=== PATIENT | female | born 1945 | race Caucasian/White ===

== ENCOUNTER 2023-08-03 10:11 | Emergency (ER) | payer MEDICARE, MEDICAID, SELFPAY ==
[2023-08-03 10:13] VITALS: BP 198/91; PULSE 70; RESP 16; TEMP 36.6; O2SAT 98; BMI 22.6
--- NOTE | 2023-08-03 10:28 | CTR_ITS ---
PROCEDURE INFORMATION: Exam: CT Abdomen And Pelvis With Contrast Exam date and time: 08/03/2023 12:20 PM Age: 78 years old Clinical indication: Abdominal pain; Additional info: Abd pain/ vaginal bleeding TECHNIQUE: Imaging protocol: Computed tomography of the abdomen and pelvis with contrast. Radiation optimization: All CT scans at this facility use at least one of these dose optimization techniques: automated exposure control; mA and/or kV adjustment per patient size (includes targeted exams where dose is matched to clinical indication); or iterative reconstruction. Contrast material: OMNI 350; Contrast volume: 100 ml; Contrast route: INTRAVENOUS (IV); REPORTING DATA: Count of CT and Cardiac NM exams in prior 12 months: This patient has received 0 known CTs and 0 known cardiac nuclear medicine studies in the 12 months prior to the current study. COMPARISON: No relevant prior studies available. RADIATION DOSE METRICS: Total DLP (mGy-cm): 394.11 FINDINGS: Lungs: 5 mm left lower lobe pulmonary nodule series 4, image 10 Liver: Few tiny hypodensities too small to characterize. Gallbladder and bile ducts: No calcified stones. No ductal dilation. Pancreas: No ductal dilation. Spleen: No splenomegaly. Adrenal glands: No mass. Kidneys and ureters: No stones or hydronephrosis. 1.3 cm right proteinaceous/hemorrhagic cyst. Additional tiny hypodensities too small to definitively characterize. Stomach and bowel: Moderate-sized hiatal hernia. No obstruction. Colonic diverticulosis. Appendix: No evidence of appendicitis. Intraperitoneal space: No free air. No significant fluid collection. Vasculature: No abdominal aortic aneurysm. Lymph nodes: No enlarged lymph nodes. Urinary bladder: No acute findings. Reproductive: Irregular appearance of the vagina/cervix with peripheral thick irregular enhancing calix and internal complex fluid densities (axial image 62). Bones/joints: No acute findings. Soft tissues: No acute findings. CT/CT abdomen pelvis w con* [id number] IMPRESSION: Irregular appearance of the vagina/cervix, recommend pelvic MRI with contrast for further characterization. 5 mm left lower lobe pulmonary nodules indeterminate given above findings. Moderate-sized hiatal hernia.
--- NOTE | 2023-08-03 10:30 | W.ED.FEMALGU ---
HPI - Female Genitourinary General: Chief complaint: Urogenital-Female Stated complaint: VAG BLEED Time Seen by Provider: 08/03/23 10:27 History of Present Illness: 78-year-old female presents emergency department with complaints that she started having vaginal bleeding with large clots at approximately 9 AM this morning. She states she is intermittently dizzy and feels like her blood pressure is elevated. She states she has never had a Pap smear or any sort of female vaginal surgery and has never had any bleeding like this before. Review of Systems General: Reports: 10 or more systems reviewed and unremarkable except in HPI and below : Reports: vaginal bleeding [facility] PFSH: Surgical History History of cataract surgery Social History Smoking and tobacco/nicotine status: never used tobacco/nicotine Physical Exam Narrative: EXAM NARRATIVE: Constitutional: the patient appears well nourished and of normal development. Vital signs as documented. No acute distress at present. Alert and oriented-to person, place, time and situation. Head, eyes, ears, nose, mouth, throat: Normocephalic, atraumatic. Pupils-equal, round, reactive to light. No scleral icterus. Normal-appearing external ears. Normal appearing nasal turbinates, no drainage. No obvious oral lesions, posterior oropharynx without erythema or exudates. Neck: Supple, trachea is midline, no lymphadenopathy, no jugular venous distension, thyromegaly, or carotid bruits. Carotid upstrokes are brisk bilaterally. Lungs: clear to auscultation to all lung tariq. Symmetrical rise and fall of chest, no obvious signs of increased work of breathing at present. Cardiac: Regular rate and rhythm, positive S1, S2. No murmurs, rubs or gallops that I can appreciate Abdomen: Soft, non-tender to palpation, normal active bowel sounds to all quadrants. No palpable masses, no organomegaly and abdominal bruits. Extremities: 2+ pulses in the upper extremities that are equal bilaterally, 2+ pulses in the lower extremities that are equal bilaterally. Non-edematous. Moves all extremities well, sensation to all extremities are noted. Skin: Warm, dry, intact. Course Vital Signs: Vital signs: Vital Signs Temperature 97.8 F 08/03/23 10:13 Pulse Rate 65 08/03/23 17:54 Respiratory Rate 16 08/03/23 17:54 Blood Pressure 112/57 08/03/23 17:54 Pulse Oximetry 98 08/03/23 17:54 Oxygen Delivery Me thod Room Air 08/03/23 15:03 MDM - Female Medical Decision Making Physical exam completed and documented, the patient does appear to be very anxious I will obtain a CBC and CMP as well as urinalysis, a transvaginal ultrasound as well as an abdominal CT abdomen pelvis for evaluation. Differential diagnosis includes gynecological malignancy, fibroma, dysfunctional uterine bleeding., Medical Records I reviewed the patient's medical records. Lab Data I reviewed the patient's lab results. 08/03/23 10:44 08/03/23 10:44 Radiology Impressions Abdomen/Pelvis CT 08/03/23 10:28 IMPRESSION: Irregular appearance of the vagina/cervix, recommend pelvic MRI with contrast for further characterization. 5 mm left lower lobe pulmonary nodules indeterminate given above findings. Moderate-sized hiatal hernia. Transvaginal US 08/03/23 13:29 IMPRESSION: 1. Two somewhat complex cystic structures in the pelvis with somewhat thick calix measuring 6.8 and 6 cm in size with minimal peripheral color blood flow, corresponding to the cystic structure seen on comparison CT scan. Findings are concerning for a malignant process, an infectious process is also a consideration. 2. Uterus not seen. 3. Right ovary not seen. 4. Left ovary not seen. Laboratory Results WBC 6.59 10^3/uL (3.29-11.43) 08/03/23 10:44 RBC 4.73 10^6/uL (3.85-5.65) 08/03/23 10:44 Hgb 13.80 g/dL (11.27-16.99) 08/03/23 10:44 Hct 41.7 % (36-47) 08/03/23 10:44 MCV 88.2 fl (85-98) 08/03/23 10:44 MCH 29.2 pg (27-33) 08/03/23 10:44 MCHC 33.1 g/dL (30-55) 08/03/23 10:44 RDW 11.8 % (12.1-15.1) L 08/03/23 10:44 Plt Count 331 10^3/cmm (157-399) 08/03/23 10:44 MPV 8.5 fL (7.4-10.4) 08/03/23 10:44 Neut % (Auto) 73.3 % 08/03/23 10:44 Lymph % (Auto) 13.5 % 08/03/23 10:44 Potter % (Auto) 9.6 % 08/03/23 10:44 Eos % (Auto) 2.7 % 08/03/23 10:44 Baso % (Auto) 0.6 % 08/03/23 10:44 Neut # (Auto) 4.83 10^3/uL (1.8-7.7) 08/03/23 10:44 Lymph # (Auto) 0.9 10^3/uL (0.8-4.8) 08/03/23 10:44 Potter # (Auto) 0.6 10^3/uL (0.2-0.9) 08/03/23 10:44 Eos # (Auto) 0.2 10^3/uL (0.0-0.8) 08/03/23 10:44 Baso # (Auto) 0.0 10^3/uL (0.0-0.1) 08/03/23 10:44 Nucleated RBC % (auto) 0 % 08/03/23 10:44 Nucleated RBCs # 0.0 /100WBC 08/03/23 10:44 Sodium 138 mmol/L (136-145) 08/03/23 10:44 Potassium 4.0 mmol/L (3.5-5.1) 08/03/23 10:44 Chloride 101 mmol/L (98-107) 08/03/23 10:44 Carbon Dioxide 23 mmol/L (22-29) 08/03/23 10:44 Anion Gap 18.0 (5-19) 08/03/23 10:44 BUN 10 mg/dL (8-23) 08/03/23 10:44 Creatinine 0.7 mg/dL (0.5-0.9) 08/03/23 10:44 GFR Calculation Not Reportable 08/03/23 10:44 Glucose 101 mg/dL (65-115) 08/03/23 10:44 Calculated Osmolality 285 mOsm/kg (285-295) 08/03/23 10:44 Calcium 9.0 mg/dL (8.5-10.5) 08/03/23 10:44 Total Bilirubin 0.4 mg/dL (0.15-1.2) 08/03/23 10:44 AST 20 U/L (0-32) 08/03/23 10:44 ALT 13 U/L (0-33) 08/03/23 10:44 Alkaline Phosphatase 103 U/L (35-105) 08/03/23 10:44 Total Protein 7.7 g/dL (6.6-8.7) 08/03/23 10:44 Albumin 4.5 g/dL (3.5-5.2) 08/03/23 10:44 Globulin 3.2 g/dL (1.3-4.6) 08/03/23 10:44 Urine Color Straw (Yellow) 08/03/23 10:30 Urine Appearance Clear (CLEAR) 08/03/23 10:30 Urine pH 7 (5-7) 08/03/23 10:30 Ur Specific [place] 1.005 (1.005-1.030) 08/03/23 10:30 Urine Protein Neg (Negative) 08/03/23 10:30 Urine Glucose (UA) Norm (Normal) 08/03/23 10:30 Urine Ketones Negative (Negative) 08/03/23 10:30 Urine Blood Neg (Negative) 08/03/23 10:30 Urine Nitrate Negative (Negative) 08/03/23 10:30 Urine Bilirubin Neg (Negative) 08/03/23 10:30 Urine Urobilinogen Norm mg/dL (Negative) 08/03/23 10:30 Ur Leukocyte Esterase Negative (Negative) 08/03/23 10:30 All radiology interpretation(s) finalized by discharge Discharge Plan Discharge Patient Disposition: Home Clinical Impression: Uterine bleeding Condition: Stable Prescriptions: No Action aspirin 81 mg tablet,delayed release (DR/EC) 81 mg PO DAILY metoprolol tartrate 25 mg tablet 25 mg PO DAILY lovastatin 20 mg tablet 20 mg PO DAILY levothyroxine 50 mcg tablet 50 mcg PO DAILY citalopram 20 mg tablet 20 mg PO DAILY amlodipine 5 mg tablet 5 mg PO DAILY lisinopril 20 mg tablet 20 mg PO DAILY Discharge Orders: Discharge ED (Routine); Ordered 08/03/23 Ordered By: Michele Delvalle Referrals: Yo Bernal MD [Physician] - Richi Santana MD [Referring] - Discharge Diet: Advance as tolerated Discharge Activity: Resume usual activity Patient Instructions: Opioid Safety, Pain Management Activity Restrictions/Additional Instructions: Activity Restrictions/Additional Instructions: Thank you for choosing [facility] for your healthcare needs today. Please realize that you were seen in the Emergency Department and that we are providing you with an emergency medical screening exam and this may not be a complete and all inclusive of all the testing and or medical work-up that you may need to determine your ailment or severity of your illness. It is very important that you follow-up as instructed with your Primary care provider or Specialist for additional evaluation and to discuss your medical treatment plan. You may return to the Emergency Department should you have concerns or if your condition changes or worsens in any way. Coding Level of Care Code ED Appointment Manager for Jamel Renee
[2023-08-03 10:31] VITALS: BP 166/83; PULSE 66; RESP 18; O2SAT 18
[2023-08-03 11:06] LABS: Basophils % 0.6 %; Eosinophils # 0.2 10^3/uL (0.0-0.8); Eosinophils % 2.7 %; Hematocrit 41.7 % (36-47); Lymphocytes # 0.9 10^3/uL (0.8-4.8); Lymphocytes % 13.5 %; Mean Corpuscular HGB Conc 33.1 g/dL (30-55); Mean Corpuscular Hemoglobin 29.2 pg (27-33); Mean Corpuscular Volume 88.2 fl (85-98); Mean Platelet Volume 8.5 fL (7.4-10.4); Monocytes # 0.6 10^3/uL (0.2-0.9); Monocytes % 9.6 %; Neutrophils # 4.83 10^3/uL (1.8-7.7); Neutrophils % 73.3 %; Nucleated Red Blood Cells % 0 %; Platelet Count 331 10^3/cmm (157-399); Red Blood Count 4.73 10^6/uL (3.85-5.65); Red Cell Distribution Width 11.8 % (12.1-15.1); White Blood Count 6.59 10^3/uL (3.29-11.43)
[2023-08-03 11:09] LABS: Add Urine Microscopic? NO; Charge for UA Resulting for Rev
[2023-08-03 11:16] LABS: Bilirubin Urine Neg (Negative); Blood Urine Neg (Negative); Glucose Urine UA Norm (Normal); Ketones Urine Negative (Negative); Leukocyte Esterase Urine Negative (Negative); Nitrate Urine Negative (Negative); Protein Urine Neg (Negative); Specific Gravity, Urine 1.005 (1.005-1.030); Urine Appearance Clear (CLEAR); Urine Color Straw (Yellow); Urobilinogen Urine Norm (Negative); pH Urine 7 (5-7)
[2023-08-03 11:57] LABS: Alanine Aminotransferase 13 U/L (0-33); Albumin Level 4.5 g/dL (3.5-5.2); Alkaline Phosphatase 103 U/L (35-105); Aspartate Amino Transferase 20 U/L (0-32); Blood Urea Nitrogen 10 mg/dL (8-23); Carbon Dioxide 23 mmol/L (22-29); Chloride 101 mmol/L (98-107); Creatinine Clr Calc Pharmacy 49.6381; Globulin 3.2 g/dL (1.3-4.6); Glucose 101 mg/dL (65-115); Osmolality Calculated 285 mOsm/kg (285-295); Sodium 138 mmol/L (136-145); Total Bilirubin 0.4 mg/dL (0.15-1.2); Total Protein 7.7 g/dL (6.6-8.7)
[2023-08-03] MEDS: iohexol 350 mg/mL 500 mL Btl (per mL) IV (12:27)
--- NOTE | 2023-08-03 13:29 | USR_ITS ---
PROCEDURE INFORMATION: Exam: US Pelvis, Transvaginal Exam date and time: 08/03/2023 2:04 PM Age: 78 years old Clinical indication: Other: Uterine bleeding TECHNIQUE: Imaging protocol: Real-time transvaginal pelvic ultrasound with image documentation. Transvaginal imaging was used for better evaluation of the endometrium, adnexa, and/or cervix. COMPARISON: CT abdomen pelvis w con* [id number] 08/03/2023 12:20 PM FINDINGS: Uterus: Uterus not seen. Right ovary/adnexa: Right ovary not seen. Left ovary/adnexa: Left ovary not seen. Two somewhat complex cystic structures in the pelvis with somewhat thick calix measuring 6.8 and 6 cm in size with minimal peripheral color blood flow, corresponding to the cystic structure seen on comparison CT scan. Findings are concerning for a malignant process, an infectious process is also a consideration. US/US transvaginal [id number] IMPRESSION: 1. Two somewhat complex cystic structures in the pelvis with somewhat thick calix measuring 6.8 and 6 cm in size with minimal peripheral color blood flow, corresponding to the cystic structure seen on comparison CT scan. Findings are concerning for a malignant process, an infectious process is also a consideration. 2. Uterus not seen. 3. Right ovary not seen. 4. Left ovary not seen.
[2023-08-03 15:03] VITALS: BP 129/60; PULSE 82; O2SAT 96
[2023-08-03] MEDS: tranexamic acid 1,000 MG/100 ML PREMIX 600 MG IV (16:21)
[2023-08-03 17:53] VITALS: BP 112/57; PULSE 65; RESP 16; O2SAT 98
[2023-08-03 17:54] VITALS: BP 112/57; PULSE 65; PULSE 82; RESP 16; O2SAT 96; O2SAT 98
== END 2023-08-03 17:55 | disposition home or self-care (01) ==
PROVIDERS: Emergency Provider Internal Medicine; PCP Internal Medicine
DX: N93.9 Abnormal uterine and vaginal bleeding, unspecified (principal); Z79.82 Long term (current) use of aspirin; K44.9 Diaphragmatic hernia without obstruction or gangrene
CPT/HCPCS: 74177; 76830; 80053; 81003; 85025; 96365; 99285; Q9967

== ENCOUNTER 2023-10-17 08:03 | Oncology outpatient (recurring) (ONCR) | payer MEDICARE, MEDICAID, SELFPAY ==
--- NOTE | 2023-10-21 11:27 | N.ONRAD NP_ITS ---
Radiation Oncology New Patient Visit Patient: Klarissa Willson MR#: [id number] : 1945> Age: 78> Sex: Female> Dictated by: Dr. Nayeli Hutson Date of Service: 10/17/2023 Referring Physician(s) : Dr. 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 It was apparently fairly significant bleeding but she was not anemic. She was sent to Dr. So for additional evaluation. He visited with her on Saturday and did surgery the following day on Saturday. She had had an ultrasound and a CT scan which did not show any evidence of metastatic disease. There was some issues with identifying the uterus on the scan as well is or cystic structures in the pelvis. At the time of her surgery on August 17 she had a CLARIBEL and BSO along with pelvic and periaortic node dissection. 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 All the remaining tissue as well as the lymph nodes were all negative with a total of 15 nodes sampled. The tumor measured 4 x 4.5 cm in size and was grade 2 with no lymphovascular or perineural invasion noted. All margins were negative. She is here today to discuss postoperative treatment. Current Medications: Allergies: Medical History: Ovarian mass, postmenopausal bleeding no history of collagen vascular disease. No previous radiation therapy. Surgical History: None prior to her CLARIBEL/BSO with mairto sampling Family History: Her aunt had breast cancer in her father and sister both had heart disease Social History: She currently lives alone and a penitentiary community. She has no smoking or alcohol use history Current Complaints / Review of Systems: . She currently is without complaints. Her incision is nicely healed. Vital Signs: Physical Exam: General patient is in moderate distress. She feels like her blood pressure is elevated secondary to her current anxiety. She is alone today. HEENT: Normocephalic atraumatic. Pupils are equal, sclera clear, extraocular muscles intact. Neck is supple without palpable cervical supraclavicular adenopathy Cardiovascular: Regular rate and rhythm Pulmonary: Respiratory rate is regular nonlabored Abdomen: Soft and nontender. All of her incisions appear to be nicely healed. Extremities: No clubbing cyanosis or edema noted Skin: Warm and dry without ecchymoses Neurological: Alert and orient x 3. Gait and speech within normal limits Psych: Patient is quite stressed today. She has a high level of anxiety. Apparently her physician in [place] told her that this was a life and situation and she needed to be seen today. Performance Status: KPS 100 Pathology: Grade 2 squamous cell carcinoma of the cervix Lab: Imaging: See HPI Impression: Squamous of carcinoma of the cervix Plan: I reviewed with Mrs. Willson her current situation. We talked about how she had had a very appropriate and aggressive surgery. At the time of her surgery they thought that her malignancy was uterine in nature. She did have a radical hysterectomy however and she also had lymph node sample clear into the periaortic region. Her surgery was more than adequate for either uterine or cervical cancer. Her margins were negative. The depth of invasion was greater than 5 mm but there was no lymphovascular invasion noted. The lesion was a grade 2 and by final measurements was approximately 4 cm in size. All margins were negative. I have reviewed with her the fact that she rides chest on the line between a stage Ib2 and a Ib3. We talked about how the difference between these 2 stages is 1 receives postop radiation and the other receives radiation and chemotherapy. Her tumor was just at the breaking point between a Ib2 and Ib3. I feel like her greatest risk of recurrence is locally. Her nodes have been adequately sampled. Based on postop trends and outcomes for the last 30 years her risk of survival is not changed with chemotherapy. This is based on a study by Carl Barreto [place] [employer]etrics and Gynecology 2020. I have recommended to her at this time that she consider proceeding with postop radiation. She verbalized that this sounded like the best thing for her to do. She understands the process and she is anxious to get started. Will go ahead and get her scheduled for simulation and meet with her after that to review and make sure she had no additional questions. Plan at this time is to proceed with a 4-5 week course of treatment to the pelvis. Signed by: 10/21/2023 11:26:32 AM <<Signature on File>> Time spent with patient:60 CPT Code: CPT Code:
== END 2023-10-17 23:59 | disposition home or self-care (01) ==
PROVIDERS: PCP Internal Medicine; Visit Provider Radiology Radiation Oncology
DX: Z53.9 Procedure and treatment not carried out, unspecified reason (principal)

== ENCOUNTER 2023-11-13 08:56 | Oncology outpatient (recurring) (ONCR) | payer MEDICARE, MEDICAID, SELFPAY ==
--- NOTE | 2023-11-05 12:53 | ONCRAD TMN_ITS ---
Radiation Oncology Weekly Treatment Management Patient: Klarissa Willson MR#: [id number] : 1945 Attending Physician: Dileep Fatima Date of Service: 11/05/2023 Referring Physician(s) : Dr. So Diagnosis: C53.9 - Malignant neoplasm of cervix uteri, unspecified, Diagnosed 08/17/2023 (Active) Radiotherapy to date: Course: Pelvis 2023, Treatment Site: Pelvis 50Gy, Ref. ID: [id number], Energy: 15X, Dose/Fx (cGy): 200, #Fx: , Dose Correction (cGy): 0, Total Dose Delivered (cGy): 400, Start Date: 11/04/2023, Elapsed Days: 1 Reason for visit: The patient is being seen today as part of their regularly scheduled weekly on treatment visits to assess for acute toxicities from radiotherapy. Review of Systems: Doing well. She cannot hold urine for a long time otherwise no urinary or bowel sxs. Eating well. Active during the day. Vital Signs: Performed on 11/05/2023 9:58 AM BMI - 23.997 kg/m2 (high), Height - 62 in, Weight - 131.2 lbs, Temperature - 97.5 f, Pulse - 64 /min, Respiration - 16 /min, O2 Sat - 99 %, Pain - 0, Fatigue - 0 and BP - 170/ 74 mm(hg)(high/). Physical Exam: omitted Imaging: Radiation therapy imaging related to accurate target localization (i.e. KV, MV and CBCT) was reviewed. Appropriate changes, if any, were made to ensure treatment accuracy. Plan: Good tolerance of treatment. Continue as planned. Signed by: Dileep Fatima 11/05/2023 12:51:36 PM
--- NOTE | 2023-11-12 10:35 | ONCRAD TMN_ITS ---
Radiation Oncology Weekly Treatment Management Patient: Demetris Henderson MR#: [id number] : 1945> Attending Physician: Dr. Nayeli Hutson Date of Service: 11/12/2023 Fractions: 7 of Referring Physician(s) : Diagnosis: C53.9 - Malignant neoplasm of cervix uteri, unspecified, Diagnosed 08/17/2023 (Active) Radiotherapy to date: Course: Pelvis 2023, Treatment Site: Pelvis 50Gy, Ref. ID: [id number], Energy: 15X, Dose/Fx (cGy): 200, #Fx: , Dose Correction (cGy): 0, Total Dose Delivered (cGy): 1,400, Start Date: 11/04/2023, Elapsed Days: 8 Reason for visit: The patient is being seen today as part of their regularly scheduled weekly on treatment visits to assess for acute toxicities from radiotherapy. Review of Systems: Patient has had a change in her stool. It normally starts out solid but then goes to liquid towards the end. She still only having 1 stool day. She has had no nausea. She is quite fatigued if she is having to ride the transport breast. Vital Signs: Performed on 11/12/2023 10:07 AM BMI - 23.924 kg/m2 (high), Height - 62 in, Weight - 130.8 lbs, Temperature - 97.2 f, Pulse - 98 /min, Respiration - 18 /min, O2 Sat - 98 %, Pain - 0, Fatigue - 7 and BP - 168/ 73 mm(hg)(high/). Physical Exam: No changes on exam Imaging: Radiation therapy imaging related to accurate target localization (i.e. KV, MV and CBCT) was reviewed. Appropriate changes, if any, were made to ensure treatment accuracy. Plan: Will continue with her treatments as planned. I wrote down the name for Imodium so that she can pick this up if she needed to down the line. She has discontinued her prune juice for now. Signed by: Dr. Nayeli Hutson 11/12/2023 10:34:31 AM
== END 2023-11-13 23:59 | disposition home or self-care (01) ==
PROVIDERS: PCP Internal Medicine; Visit Provider Radiology Radiation Oncology
DX: Z51.0 Encounter for antineoplastic radiation therapy (principal); C53.9 Malignant neoplasm of cervix uteri, unspecified
CPT/HCPCS: 77300; 77301; 77334; 77338; 77386; 99024

== ENCOUNTER 2023-11-15 09:07 | Oncology outpatient (recurring) (ONCR) | payer MEDICARE, MEDICAID, SELFPAY | END 2023-11-17 23:59 | disposition home or self-care (01) | PROVIDERS: PCP Internal Medicine; Visit Provider Radiology Radiation Oncology | DX: Z51.0 Encounter for antineoplastic radiation therapy (principal); C53.9 Malignant neoplasm of cervix uteri, unspecified | CPT/HCPCS: 77336; 77386 ==

== ENCOUNTER 2023-12-05 09:20 | Oncology outpatient (recurring) (ONCR) | payer MEDICARE, MEDICAID, SELFPAY ==
--- NOTE | 2023-11-19 10:25 | ONCRAD TMN_ITS ---
Radiation Oncology Weekly Treatment Management Patient: Klarissa Willson MR#: [id number] : 1945 Attending Physician: Dr. Nayeli Hutson Date of Service: 11/19/2023 Fractions: Referring Physician(s) : Diagnosis: C53.9 - Malignant neoplasm of cervix uteri, unspecified, Diagnosed 08/17/2023 (Active) Radiotherapy to date: Course: Pelvis 2023, Treatment Site: Pelvis 50Gy, Ref. ID: [id number], Energy: 15X, Dose/Fx (cGy): 200, #Fx: , Dose Correction (cGy): 0, Total Dose Delivered (cGy): 2,400, Start Date: 11/04/2023, Elapsed Days: 15 Reason for visit: The patient is being seen today as part of their regularly scheduled weekly on treatment visits to assess for acute toxicities from radiotherapy. Review of Systems: Patient had a day of diarrhea and took 2 Imodium. She is subsequently not gone for 2 days. Vital Signs: Performed on 11/19/2023 9:32 AM BMI - 23.814 kg/m2 (high), Height - 62 in, Weight - 130.2 lbs, Temperature - 97.4 f, Pulse - 67 /min, Respiration - 16 /min, O2 Sat - 97 %, Pain - 0, Fatigue - 7 and BP - 158/ 63 mm(hg)(high/low). Physical Exam: No changes on exam Imaging: Radiation therapy imaging related to accurate target localization (i.e. KV, MV and CBCT) was reviewed. Appropriate changes, if any, were made to ensure treatment accuracy. Plan: Will continue with her treatments as planned. I have asked her to go ahead and start her prune juice again. In the future I reminded her that trying just half of a pill of Imodium would be where to start if she should have liquid stools again. Signed by: Dr. Nayeli Hutson 11/19/2023 10:23:32 AM
--- NOTE | 2023-11-26 10:31 | ONCRAD TMN_ITS ---
Radiation Oncology Weekly Treatment Management Patient: Klarissa Willson MR#: [id number] : 1945 Attending Physician: Dr. Nayeli Hutson Date of Service: 11/26/2023 Fractions: Referring Physician(s) : Diagnosis: C53.9 - Malignant neoplasm of cervix uteri, unspecified, Diagnosed 08/17/2023 (Active) Radiotherapy to date: Course: Pelvis 2023, Treatment Site: Pelvis 50Gy, Ref. ID: [id number], Energy: 15X, Dose/Fx (cGy): 200, #Fx: , Dose Correction (cGy): 0, Total Dose Delivered (cGy): 3,400, Start Date: 11/04/2023, Elapsed Days: Reason for visit: The patient is being seen today as part of their regularly scheduled weekly on treatment visits to assess for acute toxicities from radiotherapy. Review of Systems: Patient's only complaint is that she is fairly fatigued. She was able to get her bowels back to normal. Vital Signs: Performed on 11/26/2023 10:10 AM BMI - 23.704 kg/m2 (high), Height - 62 in, Weight - 129.6 lbs, Temperature - 97.9 f, Pulse - 67 /min, Respiration - 16 /min, O2 Sat - 99 %, Pain - 0, Fatigue - 5 and BP - 148/ 68 mm(hg)(high/). Physical Exam: No changes on exam Imaging: Radiation therapy imaging related to accurate target localization (i.e. KV, MV and CBCT) was reviewed. Appropriate changes, if any, were made to ensure treatment accuracy. Plan: Will continue with her treatments as planned. I did encourage her to try and ride her bike this weekend. Signed by: Dr. Nayeli Hutson 11/26/2023 10:28:49 AM
--- NOTE | 2023-12-03 10:30 | ONCRAD TMN_ITS ---
Radiation Oncology Weekly Treatment Management, Patient: Demetris Henderson MR#: [id number] : 1945> Attending Physician: Dr. Nayeli Hutson Date of Service: 12/03/2023 Fractions: 22 out of 25 Referring Physician(s) : Diagnosis: C53.9 - Malignant neoplasm of cervix uteri, unspecified, Diagnosed 08/17/2023 (Active) Radiotherapy to date: Course: Pelvis 2023, Treatment Site: Pelvis 50Gy, Ref. ID: [id number], Energy: 15X, Dose/Fx (cGy): 200, #Fx: , Dose Correction (cGy): 0, Total Dose Delivered (cGy): 4,400, Start Date: 11/04/2023, Elapsed Days: Reason for visit: The patient is being seen today as part of their regularly scheduled weekly on treatment visits to assess for acute toxicities from radiotherapy. Review of Systems: Patient continues to have intermittent diarrhea for which she is using the Imodium. She is lost about 2 pounds through the course of her treatment based on her scales. She is also quite fatigued and has not been able to ride her bike since starting treatment Vital Signs: Performed on 12/03/2023 10:02 AM BMI - 23.375 kg/m2 (high), Height - 62 in, Weight - 127.8 lbs, Temperature - 97.4 f, Pulse - 54 /min (low), Respiration - 18 /min, O2 Sat - 97 %, Pain - 0, Fatigue - 0 and BP - 155/ 75 mm(hg)(high/). Physical Exam: No changes on exam Imaging: Radiation therapy imaging related to accurate target localization (i.e. KV, MV and CBCT) was reviewed. Appropriate changes, if any, were made to ensure treatment accuracy. Plan: Will continue with her treatments. Should be done on Saturday. Will schedule her for a follow-up in about a month. Will schedule follow-up scans in 8 to 12 weeks. Signed by: Dr. Nayeli Hutson 12/03/2023 10:28:45 AM
== END 2023-12-05 23:59 | disposition home or self-care (01) ==
PROVIDERS: PCP Internal Medicine; Visit Provider Radiology Radiation Oncology
DX: Z51.0 Encounter for antineoplastic radiation therapy (principal); C53.9 Malignant neoplasm of cervix uteri, unspecified
CPT/HCPCS: 77336; 77386; 99024

== ENCOUNTER 2023-12-06 10:10 | Oncology outpatient (recurring) (ONCR) | payer MEDICARE, MEDICAID, SELFPAY ==
--- NOTE | 2023-12-09 09:47 | N.ONRD TS_ITS ---
Radiation Oncology Treatment Summary Patient: Demetris>Santiago MR#: [id number] : 1945> Age: 78> Sex: Female Dictated by: Dr. Nayeli Hutson Date of Service: 12/06/2023 Referring Physician(s) : Diagnosis: C53.9 - Malignant neoplasm of cervix uteri, unspecified, Diagnosed 08/17/2023 (Active) Radiotherapy to Date: Course: Pelvis 2023, Treatment Site: Pelvis 50Gy, Ref. ID: [id number], Energy: 15X, Dose/Fx (cGy): 200, #Fx: 25 / 25, Dose Correction (cGy): 0, Total Dose Delivered (cGy): 5,000, Start Date: 11/04/2023, End Date: 12/06/2023, Elapsed Days: 32 Clinical Summary: The patient tolerated RT well. Her main complaint was significant fatigue. Part of this was related to her treatment but part of it was also related to the fact that she had to ride the bus for at least 1 to 2 hours a day in order to get here for her treatment. Plan: End of treatment today. Continue on the above medication until the skin reaction resolves. Follow up in one month. Signed by: Dr. Nayeli Hutson>12/09/2023 9:46:05 AM <<Signature on File>>
== END 2023-12-17 23:59 | disposition home or self-care (01) ==
LOC: ONCMED 10:10
PROVIDERS: PCP Internal Medicine; Visit Provider Radiology Radiation Oncology
DX: Z51.0 Encounter for antineoplastic radiation therapy (principal); C53.9 Malignant neoplasm of cervix uteri, unspecified
CPT/HCPCS: 77336; 77386; 99024

== ENCOUNTER 2024-11-25 10:04 | Outpatient (CLI) | payer MEDICARE, MEDICAID, SELFPAY ==
--- NOTE | 2024-11-25 10:09 | XRR_ITS ---
PROCEDURE INFORMATION: Exam: XR Right Forearm Exam date and time: 11/25/2024 10:27 AM Age: 79 years old Clinical indication: Injury or trauma; Fall; Blunt trauma (contusions or hematomas); Arm, lower; Right; Additional info: Recent fall w/bruising/hx of falling/ecchymosis TECHNIQUE: Imaging protocol: Radiologic exam of the right forearm. Views: 2 views. COMPARISON: No relevant prior studies available. FINDINGS: Bones/joints: Normal. Soft tissues: Dorsal soft tissue swelling in the proximal forearm. XR/XR forearm RT 2V [id number] IMPRESSION: No acute osseous abnormality.
== END 2024-11-25 10:05 | disposition home or self-care (01) ==
PROVIDERS: PCP Internal Medicine; Visit Provider Nurse Practitioner Family
DX: Z91.81 History of falling (principal); R58 Hemorrhage, not elsewhere classified; M79.89 Other specified soft tissue disorders
CPT/HCPCS: 73090

== ENCOUNTER 2024-12-14 01:37 | Emergency (ER) | payer MEDICARE, MEDICAID, SELFPAY ==
[2024-12-14 01:38] VITALS: BP 120/68; PULSE 115; RESP 19; TEMP 37.1; O2SAT 96; BMI 23.6
--- NOTE | 2024-12-14 01:38 | XRR_ITS ---
PROCEDURE INFORMATION: Exam: XR Chest Exam date and time: 12/14/2024 1:38 AM Age: 79 years old Clinical indication: Chest pressure; C/O chest pain; Additional info: Cp TECHNIQUE: Imaging protocol: Radiologic exam of the chest. Views: 1 view. COMPARISON: CT abdomen pelvis w con* [id number] 08/03/2023 12:20 PM FINDINGS: Lungs: Unremarkable. No consolidation. Pleural spaces: Unremarkable. No pleural effusion. No pneumothorax. Heart/Mediastinum: Cardiac enlargement. Large hiatal hernia. Bones/joints: Unremarkable. XR/XR chest 1V portable [id number] IMPRESSION: Negative for acute chest pathology.
--- NOTE | 2024-12-14 01:41 | ECG_ITS ---
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
[2024-12-14 01:58] LABS: Basophils % 0.5 %; Eosinophils # 0.2 10^3/uL (0.0-0.8); Eosinophils % 2.3 %; Hematocrit 35.8 % (36-47); Lymphocytes # 0.4 10^3/uL (0.8-4.8); Lymphocytes % 5.3 %; Mean Corpuscular HGB Conc 31.6 g/dL (30-55); Mean Corpuscular Hemoglobin 27.2 pg (27-33); Mean Corpuscular Volume 86.1 fl (85-98); Neutrophils # 6.63 10^3/uL (1.8-7.7); Neutrophils % 79.7 %; Nucleated Red Blood Cells % 0 %; Platelet Count 663 10^3/cmm (157-399); Red Blood Count 4.16 10^6/uL (3.85-5.65); Red Cell Distribution Width 13.3 % (12.1-15.1); White Blood Count 8.32 10^3/uL (3.29-11.43)
[2024-12-14 02:07] LABS: INR 0.97 (0.8-1.2)
[2024-12-14 02:08] LABS: Partial Thromboplastin Time 26.8 SECONDS (23.9-36.7)
[2024-12-14 02:17] LABS: Troponin(5th) Baseline 10 ng/L (0-10)
[2024-12-14 02:34] LABS: Alanine Aminotransferase 9 U/L (0-33); Albumin Level 3.2 g/dL (3.5-5.2); Alkaline Phosphatase 95 U/L (35-105); Anion Gap 17.4 (5-19); Aspartate Amino Transferase 16 U/L (0-32); Blood Urea Nitrogen 7 mg/dL (8-23); Calcium 8.5 mg/dL (8.5-10.5); Carbon Dioxide 20 mmol/L (22-29); Chloride 103 mmol/L (98-107); Creatinine Clr Calc Pharmacy 49.7059; Globulin 2.9 g/dL (1.3-4.6); Glucose 104 mg/dL (65-115); Osmolality Calculated 282 mOsm/kg (285-295); Potassium 3.4 mmol/L (3.5-5.1); Sodium 137 mmol/L (136-145); Total Bilirubin 0.3 mg/dL (0.15-1.2); Total Protein 6.1 g/dL (6.6-8.7)
[2024-12-14 02:36] VITALS: PULSE 98; RESP 20; O2SAT 95
[2024-12-14 02:39] LABS: NT Pro B Type Natriuretic Pept 215 pg/mL (0-450)
[2024-12-14] MEDS: dexamethasone 4 mg/mL INJ 8 MG IVP (03:39)
--- NOTE | 2024-12-14 03:39 | W.ED.CHESTPA ---
HPI - Chest Pain General: Chief Complaint: Chest Pain Stated Complaint: cp Time Seen by Provider: 12/14/24 01:42 History of Present Illness: 79-year-old female with no prior history of cardiac disease. She presents with left-sided pleuritic chest pain, worse with cough. Pain is sharp. It has been present for several days on and off. She notes white sputum. She ran a fever last week. She states I have a bad cold . She came in as a STEMI alert, due to EKG changes found in the field. Related Data Home Medications ?Medication ?Instructions ?Recorded ?Confirmed amlodipine 5 mg tablet 5 mg PO DAILY 04/26/22 08/06/23 citalopram 20 mg tablet 20 mg PO DAILY 04/26/22 08/06/23 levothyroxine 50 mcg tablet 50 mcg PO DAILY 04/26/22 08/06/23 lovastatin 20 mg tablet 20 mg PO DAILY 04/26/22 08/06/23 metoprolol tartrate 25 mg tablet 25 mg PO DAILY 04/26/22 08/06/23 lisinopril 20 mg tablet 20 mg PO DAILY 08/03/23 08/06/23 aspirin 81 mg tablet,delayed 81 mg PO DAILY 08/06/23 08/06/23 release Previous Rx's ?Medication ?Instructions ?Recorded doxycycline hyclate 100 mg tablet 100 mg PO BID 7 days #14 tabs 12/14/24 methylprednisolone 4 mg tablets in See Rx Instructions PO .COMPLEX 12/14/24 a dose pack (Medrol (Grady)) #21 ea Allergies Allergy/AdvReac Type Severity Reaction Status Date / Time Penicillins Allergy Unknown ALGY-Hives Verified 08/06/23 15:30 Sulfa (Sulfonamide Allergy Unknown ALGY-Hives Verified 08/06/23 15:30 Antibiotics) PFS ED PFSH: Surgical History History of cataract surgery Social History Smoking and tobacco/nicotine status: never used tobacco/nicotine Physical Exam Const: COMMON NORMALS: no acute distress GENERAL APPEARANCE: cooperative; not ill appearing and not frail appearing HENMT: COMMON NORMALS: normocephalic, atraumatic and Normal external nose present HEAD & SCALP: normocephalic and atraumatic FACE & SINUS: normal facial exam and face symmetric NOSE: Normal external nose present Eye: COMMON NORMALS: Equal, round and reactive pupils present and EOMs intact bilaterally PUPIL: Yes Equal, round and reactive pupils present Neck/C-Spine: GENERAL: Yes trachea midline Chest: CHEST: Yes Symmetrical chest wall rise and Yes tenderness (Left chest) Resp: COMMON NORMALS: normal respiratory effort, No retractions, No use of accessory muscles and clear to auscultation bilaterally AUSCULTATION: clear to auscultation bilaterally Cardio: COMMON NORMALS: regular rate and regular rhythm RATE: regular rate RHYTHM: regular rhythm GI: COMMON NORMALS: Normal to inspection, nondistended, normoactive bowel sounds present Extremity: COMMON NORMALS: no pedal edema Neuro: CLEMENT COMA SCALE: document GCS findings [place] coma scale eye opening: Spontaneous Clement coma scale verbal response: Orientated Clement coma scale motor response: Obey commands Clement coma scale total score: 15 SENSORY EXAM: Yes extremities (intact) Psych: COMMON NORMALS: speech normal SPEECH: Yes normal speech Skin: COMMON NORMALS: no rashes or lesions noted GENERAL SKIN EXAM: no rashes or lesions noted Course Vital Signs: Vital signs: Vital Signs Temperature 98.7 F 12/14/24 01:38 Pulse Rate 102 H 12/14/24 04:08 Respiratory Rate 18 12/14/24 03:46 Blood Pressure 121/85 12/14/24 04:08 Pulse Oximetry 97 12/14/24 04:08 Oxygen Delivery Me thod Room Air 12/14/24 02:36 MDM - Chest Pain Medical Decision Making 79-year-old female with pleuritic left chest pain, cough, and sputum production. Her white blood cell count is 8.3. Platelet count 663. Bicarbonate is 20. First troponin is 10. BNP is 215. She is not hypoxic. She is mildly tachycardic at times. Her chest x-ray is negative for infiltrate. Pain is somewhat reproducible. She is given dexamethasone, Toradol here. Awaiting a second troponin. EKG initially showed sinus tachycardia with an intraventricular conduction delay/left bundle. As she was a STEMI alert called from the field, EKG was reviewed by cardiology prior to arrival. They are in agreement, that this is likely not ST elevation [place]. He came to evaluate the patient, examined repeat EKG and first troponin, and does agree the patient is not having an ST elevation myocardial infarction. She does not have evidence of acute coronary syndrome at this point. Awaiting a second troponin Delta troponin at 2 hours is 3. Pain is pleuritic. She will be treated for acute bronchitis with chest wall pain. Doxycycline, steroids, etc. Close outpatient follow-up. Return for any new or worsening symptoms. Lab Data 12/14/24 01:53 12/14/24 01:53 Radiology Impressions Chest X-Ray 12/14/24 01:38 IMPRESSION: Negative for acute chest pathology. Laboratory Results WBC 8.32 10^3/uL (3.29-11.43) 12/14/24 01:53 RBC 4.16 10^6/uL (3.85-5.65) 12/14/24 01:53 Hgb 11.30 g/dL (11.27-16.99) 12/14/24 01:53 Hct 35.8 % (36-47) L 12/14/24 01:53 MCV 86.1 fl (85-98) 12/14/24 01:53 MCH 27.2 pg (27-33) 12/14/24 01:53 MCHC 31.6 g/dL (30-55) 12/14/24 01:53 RDW 13.3 % (12.1-15.1) 12/14/24 01:53 Plt Count 663 10^3/cmm (157-399) H 12/14/24 01:53 MPV 8.0 fL (7.4-10.4) 12/14/24 01:53 Neut % (Auto) 79.7 % 12/14/24 01:53 Lymph % (Auto) 5.3 % 12/14/24 01:53 [place] % (Auto) 12.0 % 12/14/24 01:53 Eos % (Auto) 2.3 % 12/14/24 01:53 Baso % (Auto) 0.5 % 12/14/24 01:53 Neut # (Auto) 6.63 10^3/uL (1.8-7.7) 12/14/24 01:53 Lymph # (Auto) 0.4 10^3/uL (0.8-4.8) L 12/14/24 01:53 [place] # (Auto) 1.0 10^3/uL (0.2-0.9) H 12/14/24 01:53 Eos # (Auto) 0.2 10^3/uL (0.0-0.8) 12/14/24 01:53 Baso # (Auto) 0.0 10^3/uL (0.0-0.1) 12/14/24 01:53 Nucleated RBC % (auto) 0 % 12/14/24 01:53 Nucleated RBCs # 0.0 /100WBC 12/14/24 01:53 PT 13.60 SECONDS (12.1-14.9) 12/14/24 01:53 INR 0.97 (0.8-1.2) 12/14/24 01:53 APTT 26.8 SECONDS (23.9-36.7) 12/14/24 01:53 Sodium 137 mmol/L (136-145) 12/14/24 01:53 Potassium 3.4 mmol/L (3.5-5.1) L 12/14/24 01:53 Chloride 103 mmol/L (98-107) 12/14/24 01:53 Carbon Dioxide 20 mmol/L (22-29) L 12/14/24 01:53 Anion Gap 17.4 (5-19) 12/14/24 01:53 BUN 7 mg/dL (8-23) L 12/14/24 01:53 Creatinine 0.7 mg/dL (0.5-0.9) 12/14/24 01:53 GFR Calculation Not Reportable 12/14/24 01:53 Glucose 104 mg/dL (65-115) 12/14/24 01:53 Calculated Osmolality 282 mOsm/kg (285-295) L 12/14/24 01:53 Calcium 8.5 mg/dL (8.5-10.5) 12/14/24 01:53 Total Bilirubin 0.3 mg/dL (0.15-1.2) 12/14/24 01:53 AST 16 U/L (0-32) 12/14/24 01:53 ALT 9 U/L (0-33) 12/14/24 01:53 Alkaline Phosphatase 95 U/L (35-105) 12/14/24 01:53 Troponin T Baseline 10 ng/L (0-10) 12/14/24 01:53 Troponin T 120 Minute 12.00 ng/L (0-10) H 12/14/24 03:37 Delta Troponin T 2.00 ABS# (0-10) 12/14/24 03:37 NT-Pro-B Natriuret Pep 215 pg/mL (0-450) 12/14/24 01:53 Total Protein 6.1 g/dL (6.6-8.7) L 12/14/24 01:53 Albumin 3.2 g/dL (3.5-5.2) L 12/14/24 01:53 Globulin 2.9 g/dL (1.3-4.6) 12/14/24 01:53 All radiology interpretation(s) finalized by discharge Discharge Plan Discharge Patient Disposition: Home Clinical Impression: Atypical chest pain, Acute bronchiolitis Condition: Stable Prescriptions: New methylprednisolone [Medrol (Grady)] 4 mg tablets,dose pack See Rx Instructions .ROUTE .COMPLEX Qty: 21 0RF Rx Instructions: orally per package directions doxycycline hyclate 100 mg tablet 100 mg PO BID 7 Days Qty: 14 0RF No Action aspirin 81 mg tablet,delayed release (DR/EC) 81 mg PO DAILY metoprolol tartrate 25 mg tablet 25 mg PO DAILY lovastatin 20 mg tablet 20 mg PO DAILY levothyroxine 50 mcg tablet 50 mcg PO DAILY citalopram 20 mg tablet 20 mg PO DAILY amlodipine 5 mg tablet 5 mg PO DAILY lisinopril 20 mg tablet 20 mg PO DAILY Discharge Orders: Discharge ED (Routine); Ordered 12/14/24 Ordered By: Jonny Perry Referrals: Anayeli Reaves MD [Primary Care Provider] - 1-3 days Patient Instructions: Acute Bronchitis (ED), Opioid Safety, Pain Management Activity Restrictions/Additional Instructions: Medication as directed. Return for worsening pain despite treatment, worsening shortness of breath, fever despite 2-3 more doses of antibiotics, any other concerning symptoms. Call your doctor later this morning for a follow-up appointment. Print Language: Azeri Coding Level of Care Code ED Hook Up Driver for Jamel Renee
[2024-12-14] MEDS: lidocaine 2% viscous 15 ML, aluminum-mag hydrox-simethicon 30 ML, sucralfate oral liq 1 GM PO (03:41)
[2024-12-14] MEDS: guaiFENesin-codeine UDC 10 mL PO (03:43)
--- NOTE | 2024-12-14 03:43 | ECG_ITS ---
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
[2024-12-14] MEDS: doxycycline 100 mg Tablet PO (03:44)
[2024-12-14 03:46] VITALS: BP 127/60; PULSE 107; RESP 18; O2SAT 96
[2024-12-14 04:08] VITALS: BP 121/85; PULSE 102; O2SAT 97
[2024-12-14] MEDS: metoprolol tartrate 1 mg/1 mL SDV 5 mL 2.5 MG IVP (04:58)
--- NOTE | 2024-12-14 05:17 | PC.NURSE ---
pt rod this nrse called pt estefania cardenas who stated she would come get her.
[2024-12-14] MEDS: acetaminophen 500 mg Tablet 1000 MG PO (05:27)
[2024-12-14 05:46] VITALS: BP 132/73; PULSE 85; RESP 18; O2SAT 90
[2024-12-14 06:56] VITALS: BP 130/80; PULSE 99; O2SAT 90
== END 2024-12-14 06:58 | disposition home or self-care (01) ==
PROVIDERS: Emergency Provider Emergency Medicine; PCP Internal Medicine
DX: R07.89 Other chest pain (principal); J21.9 Acute bronchiolitis, unspecified
CPT/HCPCS: 71045; 80053; 83880; 84484; 85025; 85610; 85730; 93005; 96374; 96375; 99285; J1100; J3490; J9999

== ENCOUNTER 2024-12-24 04:54 | Inpatient (IN) | payer MEDICARE, MEDICAID, SELFPAY ==
[2024-12-24] VITALS (10 sets, daily range): BP systolic 107–137; BP diastolic 48–80; PULSE 71–131; RESP 16–23; TEMP 36.7–38.4; O2SAT 92–95; BMI 20.5
--- NOTE | 2024-12-24 05:00 | XRR_ITS ---
PROCEDURE INFORMATION: Exam: XR Chest Exam date and time: 12/24/2024 5:09 AM Age: 79 years old Clinical indication: Cough TECHNIQUE: Imaging protocol: Radiologic exam of the chest. Views: 1 view. COMPARISON: CR (CHEST, ) 12/14/2024 1:38 AM FINDINGS: Lungs: Hypoventilatory changes of the lung bases. Pleural spaces: Unremarkable. No pleural effusion. No pneumothorax. Heart/Mediastinum: Large hiatal hernia. Bones/joints: Unremarkable. XR/XR chest 1V portable [id number] IMPRESSION: No acute findings.
--- NOTE | 2024-12-24 05:05 | ECG_ITS ---
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1945 Requested By: Merritt Rivas Order Number: [id number] Reading MD: UGO HANEY Measurements Intervals [place] Rate: 120 P: 0 [place]: 0 QRS: 105 QRSD: 125 T: -42 QT: 339 QTc: 480 Interpretive Statements ATRIAL FIBRILLATION WITH RAPID VENTRICULAR RESPONSE SEPTAL MYOCARDIAL INFARCTION , OF INDETERMINATE AGE [40+ ms Q WAVE IN V1/V2] LATERAL MYOCARDIAL INFARCTION , PROBABLY RECENT [40+ ms Q WAVE AND/OR ST/T ABNORMALITY IN I/aVL/V5/V6] ACUTE [place] Compared to ECG 12/14/2024 03:29:59 Sinus tachycardia no longer present Intraventricular conduction delay no longer present Myocardial infarct finding still present Electronically Signed On 12-26-2024 16:18:55 CDT by UGO HANEY [email or web address] [id number]
[2024-12-24 05:13] LABS: Basophils % 0.2 %; Eosinophils # 0.2 10^3/uL (0.0-0.8); Eosinophils % 1.3 %; Hematocrit 34.1 % (36-47); Lymphocytes # 0.4 10^3/uL (0.8-4.8); Lymphocytes % 3.2 %; Mean Corpuscular HGB Conc 31.7 g/dL (30-55); Mean Corpuscular Hemoglobin 26.7 pg (27-33); Mean Corpuscular Volume 84.2 fl (85-98); Mean Platelet Volume 8.2 fL (7.4-10.4); Monocytes # 1.2 10^3/uL (0.2-0.9); Neutrophils # 9.75 10^3/uL (1.8-7.7); Neutrophils % 84.6 %; Nucleated Red Blood Cells % 0 %; Platelet Count 631 10^3/cmm (157-399); Red Blood Count 4.05 10^6/uL (3.85-5.65); Red Cell Distribution Width 13.8 % (12.1-15.1); White Blood Count 11.52 10^3/uL (3.29-11.43)
[2024-12-24] MEDS: sodium chloride 0.9% 1,000 ML 999 ML IV (05:13)
[2024-12-24] MEDS: dilTIAZem 5 mg/mL SDV 5 mL 10 MG IVP (05:13)
[2024-12-24 05:32] LABS: Alanine Aminotransferase 12 U/L (0-33); Albumin Level 2.6 g/dL (3.5-5.2); Alkaline Phosphatase 107 U/L (35-105); Anion Gap 14.9 (5-19); Aspartate Amino Transferase 18 U/L (0-32); Blood Urea Nitrogen 12 mg/dL (8-23); Calcium 8.1 mg/dL (8.5-10.5); Carbon Dioxide 22 mmol/L (22-29); Chloride 100 mmol/L (98-107); Creatinine Clr Calc Pharmacy 48.7963; Globulin 3.3 g/dL (1.3-4.6); Glucose 109 mg/dL (65-115); Osmolality Calculated 276 mOsm/kg (285-295); Potassium 3.9 mmol/L (3.5-5.1); Sodium 133 mmol/L (136-145); Total Bilirubin 0.4 mg/dL (0.15-1.2); Total Protein 5.9 g/dL (6.6-8.7)
[2024-12-24] MEDS: dilTIAZem 100 MG in sodium chloride 0.9% (add-van) 100 ML IV (05:35)
[2024-12-24 05:38] LABS: Thyroid Stimulating Hormone 4.75 uIU/mL (0.27-4.20)
--- NOTE | 2024-12-24 05:43 | PM.HP ---
Providers/Chief Complaint Primary Care Provider: Anayeli Reaves MD Chief Complaint: WEAKNESS History of Present Illness Klarissa Willson is a 79 year old female with a past medical history significant for hypertension, hyperlipidemia, cervical cancer, and multiple other comorbidities who presents to the emergency department with persistent cough x 10 days. She describes her cough is productive. Patient endorses associated severe weakness, nausea, vomiting, and generalized malaise. She endorses posttussive emesis. She states she can only eat a couple bites of food at a time before symptoms worsen. She attributes much of her weakness to inability to hold down food. She reports she completed 1 week of antibiotics. She was recently diagnosed with bronchitis and treated with steroids and doxycycline. Reports associated chills. Denies chest pain or fevers. On the emergency department, she was found to have atrial fibrillation with rapid ventricular rate. Started on Cardizem. She denies prior history of known A-fib. Denies family history of atrial fibrillation. Review of Systems Narrative: A complete review of systems was obtained and is negative except as stated in HPI. Medications/Allergies Home Medications ?Medication ?Instructions ?Recorded ?Confirmed ?Last Taken ?Type amlodipine 5 mg tablet 5 mg PO DAILY 04/26/22 08/06/23 08/03/23 History citalopram 20 mg tablet 20 mg PO DAILY 04/26/22 08/06/23 08/03/23 History levothyroxine 50 mcg tablet 50 mcg PO DAILY 04/26/22 08/06/23 08/03/23 History lovastatin 20 mg tablet 20 mg PO DAILY 04/26/22 08/06/23 08/03/23 History metoprolol tartrate 25 mg tablet 25 mg PO DAILY 04/26/22 08/06/23 08/03/23 History lisinopril 20 mg tablet 20 mg PO DAILY 08/03/23 08/06/23 08/03/23 History aspirin 81 mg tablet,delayed 81 mg PO DAILY 08/06/23 08/06/23 Unknown History release methylprednisolone 4 mg tablets in See Rx Instructions PO .COMPLEX 12/14/24 Unknown Rx a dose pack (Medrol ([facility])) #21 ea Allergies Allergy/AdvReac Type Severity Reaction Status Date / Time Penicillins Allergy Unknown ALGY-Hives Verified 08/06/23 15:30 Sulfa (Sulfonamide Allergy Unknown ALGY-Hives Verified 08/06/23 15:30 Antibiotics) PFSH Acute PFSH: Medical History Cervical cancer Hypertension Hyperlipidemia Surgical History History of cataract surgery Family History Denies family history of Arrhythmia Social History Smoking and tobacco/nicotine status: never used tobacco/nicotine Alcohol intake: never Substance/Drug Use: never Vitals/I&O/Wt Last Vital Signs Temp 98.0 F 12/24/24 04:55 Pulse 112 H 12/24/24 05:36 Resp 18 12/24/24 05:36 BP 127/80 12/24/24 05:36 Pulse Ox 93 12/24/24 05:19 O2 Del Method Room Air 12/24/24 05:19 Weight last 48 hrs Weight 52.617 kg Physical Exam Narrative: General: Patient is awake and alert. Cough present. Head: Normocephalic. Atraumatic. EOM intact. Dry mucous membranes. Neck: No JVD. Cardiovascular: No gallops. No murmurs. Irregularly irregular rhythm. Tachycardic. Lungs: Clear to auscultation, no use of accessory muscles, no crackles or wheezes. Cough present. Skin: No jaundice. No rashes. Abdomen: Normal bowel sounds, abdomen soft and nontender. Extremities: No cyanosis or clubbing. Musculoskeletal: No swollen or erythematous joints. Neurological: Moves all 4 extremities. No myoclonus. Data 12/24/24 05:02 12/24/24 05:02 A&P Assessment and plan (1) Atrial fibrillation: (2) Bronchitis: (3) Leukocytosis: (4) Thrombocytosis: (5) Hyponatremia: (6) Abnormal thyroid function test: Plan Newly diagnosed paroxysmal A-fib with a RVR - Telemetry monitoring - Continue Cardizem drip - Monitor electrolytes - Check echocardiogram - Free thyroxine ordered Recent bronchitis - Chest x-ray negative for infiltrate - Status post steroids and doxycycline - Check procal - Tessalon perldel - Supportive care Hypertension - Hold Norvasc while on Cardizem - Continue BB - Hold ACEI for now Hyperlipidemia - Continue statin Hypothyroidism - TSH mildly elevated, check free T4 DVT ppx: Lovenox PDMP PDMP Reviewed: Not Reviewed Attestations Medical Necessity Statement*: Patient presents with persistent cough and weakness, found to have newly diagnosed paroxysmal atrial fibrillation with left ventricular rate in the setting of recent bronchitis with expected hospitalization not to cross 2 midnights for treatment. Coding Level of Care Code Acute Code for [facility] Fwd Diagnoses Atrial fibrillation I48.91 Bronchitis J40 Leukocytosis D72.829 Thrombocytosis D75.839 Hyponatremia E87.1 Abnormal thyroid function test R94.6
--- NOTE | 2024-12-24 05:43 | W.ED.URI ---
HPI - URI/Sore Throat General: Chief Complaint: Upper Respiratory Infection Stated Complaint: WEAKNESS Time Seen by Provider: 12/24/24 05:00 History of Present Illness: Patient presents emerged part with complaint of cough and palpitations. Patient has been having a cough now for over a week. She has been treated with doxycycline for acute bronchitis. States that she just keeps coughing up phlegm. She states that she has no appetite and has nausea and she does not eat or drink much. She does have a history of A-fib and is noted to be in A-fib with RVR. Denies having any chest pain. Denies any fever. Related Data Home Medications ?Medication ?Instructions ?Recorded ?Confirmed amlodipine 5 mg tablet 5 mg PO DAILY 04/26/22 08/06/23 citalopram 20 mg tablet 20 mg PO DAILY 04/26/22 08/06/23 levothyroxine 50 mcg tablet 50 mcg PO DAILY 04/26/22 08/06/23 lovastatin 20 mg tablet 20 mg PO DAILY 04/26/22 08/06/23 metoprolol tartrate 25 mg tablet 25 mg PO DAILY 04/26/22 08/06/23 lisinopril 20 mg tablet 20 mg PO DAILY 08/03/23 08/06/23 aspirin 81 mg tablet,delayed 81 mg PO DAILY 08/06/23 08/06/23 release Previous Rx's ?Medication ?Instructions ?Recorded methylprednisolone 4 mg tablets in See Rx Instructions PO .COMPLEX 12/14/24 a dose pack (Medrol (Grady)) #21 ea Allergies Allergy/AdvReac Type Severity Reaction Status Date / Time Penicillins Allergy Unknown ALGY-Hives Verified 08/06/23 15:30 Sulfa (Sulfonamide Allergy Unknown ALGY-Hives Verified 08/06/23 15:30 Antibiotics) [facility] ED PFSH: Medical History (Updated 12/24/24 @ 05:44 by Garrett Berman MD) Cervical cancer Hypertension Hyperlipidemia Surgical History History of cataract surgery Social History Smoking and tobacco/nicotine status: never used tobacco/nicotine Alcohol intake: never Substance/Drug Use: never Physical Exam Const: COMMON NORMALS: no acute distress, average body habitus, patient oriented x3, no limitations, healthy appearing, alert and well nourished Resp: COMMON NORMALS: normal respiratory effort, No retractions, No use of accessory muscles, clear to auscultation bilaterally and percussion normal AUSCULTATION: clear to auscultation bilaterally PERCUSSION: percussion normal Cardio: COMMON NORMALS: negative for regular rate and negative for regular rhythm RATE: abnormal rate RHYTHM: abnormal rhythm OTHER: Irregularly irregular rhythm with tachycardia GI: COMMON NORMALS: Normal to inspection, nondistended, normoactive bowel sounds present, Soft to palpation, non-tender, No hepatosplenomegaly present, no masses and no bruits PALPATION: Yes Soft to palpation and Yes No hepatosplenomegaly present Neuro: COMMON NORMALS: patient oriented x3 SENSORIUM/ORIENTATION: Yes alert Course Vital Signs: Vital signs: Vital Signs Temperature 98.0 F 12/24/24 04:55 Pulse Rate 112 H 12/24/24 05:36 Respiratory Rate 18 12/24/24 05:36 Blood Pressure 127/80 12/24/24 05:36 Pulse Oximetry 93 12/24/24 05:19 Oxygen Delivery Me thod Room Air 12/24/24 05:19 MDM - URI/Sore Throat Medical Decision Making Patient presents emerged part with complaint of URI symptoms with cough and congestion for over a week now. Treated with doxycycline with no improvement. Patient states that she cannot eat or drink much because of nausea and lack of appetite. Patient has noted to be in A-fib with RVR. She does have a history of A-fib. She has been taking her medications. Patient given Cardizem push and then had to start patient on Cardizem drip to get heart rate down. Patient given IV fluids. Repeated labs and chest x-ray. Patient still with URI symptoms but does not appear to be septic. Possible dehydrated playing a role into patient's tachycardia. Given IV fluids. EKG shows left bundle branch block. Nonspecific ST and T wave changes. Do not believe patient's EKG represent STEMI. Discussed case with Dr. Berman, hospitalist. Will admit for further evaluation and treatment of A-fib with RVR. Lab Data 12/24/24 05:02 12/24/24 05:02 Laboratory Results WBC 11.52 10^3/uL (3.29-11.43) H 12/24/24 05:02 RBC 4.05 10^6/uL (3.85-5.65) 12/24/24 05:02 Hgb 10.80 g/dL (11.27-16.99) L 12/24/24 05:02 Hct 34.1 % (36-47) L 12/24/24 05:02 MCV 84.2 fl (85-98) L 12/24/24 05:02 MCH 26.7 pg (27-33) L 12/24/24 05:02 MCHC 31.7 g/dL (30-55) 12/24/24 05:02 RDW 13.8 % (12.1-15.1) 12/24/24 05:02 Plt Count 631 10^3/cmm (157-399) H 12/24/24 05:02 MPV 8.2 fL (7.4-10.4) 12/24/24 05:02 Neut % (Auto) 84.6 % 12/24/24 05:02 Lymph % (Auto) 3.2 % 12/24/24 05:02 [place] % (Auto) 10.0 % 12/24/24 05:02 Eos % (Auto) 1.3 % 12/24/24 05:02 Baso % (Auto) 0.2 % 12/24/24 05:02 Neut # (Auto) 9.75 10^3/uL (1.8-7.7) H 12/24/24 05:02 Lymph # (Auto) 0.4 10^3/uL (0.8-4.8) L 12/24/24 05:02 [place] # (Auto) 1.2 10^3/uL (0.2-0.9) H 12/24/24 05:02 Eos # (Auto) 0.2 10^3/uL (0.0-0.8) 12/24/24 05:02 Baso # (Auto) 0.0 10^3/uL (0.0-0.1) 12/24/24 05:02 Nucleated RBC % (auto) 0 % 12/24/24 05:02 Nucleated RBCs # 0.0 /100WBC 12/24/24 05:02 Sodium 133 mmol/L (136-145) L 12/24/24 05:02 Potassium 3.9 mmol/L (3.5-5.1) 12/24/24 05:02 Chloride 100 mmol/L (98-107) 12/24/24 05:02 Carbon Dioxide 22 mmol/L (22-29) 12/24/24 05:02 Anion Gap 14.9 (5-19) 12/24/24 05:02 BUN 12 mg/dL (8-23) 12/24/24 05:02 Creatinine 0.7 mg/dL (0.5-0.9) 12/24/24 05:02 GFR Calculation Not Reportable 12/24/24 05:02 Glucose 109 mg/dL (65-115) 12/24/24 05:02 Calculated Osmolality 276 mOsm/kg (285-295) L 12/24/24 05:02 Lactic Acid 1.0 mmol/L (0.5-2.2) 12/24/24 05:02 Calcium 8.1 mg/dL (8.5-10.5) L 12/24/24 05:02 Magnesium 2.0 mg/dL (1.7-2.3) 12/24/24 05:02 Total Bilirubin 0.4 mg/dL (0.15-1.2) 12/24/24 05:02 AST 18 U/L (0-32) 12/24/24 05:02 ALT 12 U/L (0-33) 12/24/24 05:02 Alkaline Phosphatase 107 U/L (35-105) H 12/24/24 05:02 Total Protein 5.9 g/dL (6.6-8.7) L 12/24/24 05:02 Albumin 2.6 g/dL (3.5-5.2) L 12/24/24 05:02 Globulin 3.3 g/dL (1.3-4.6) 12/24/24 05:02 TSH 4.75 uIU/mL (0.27-4.20) H 12/24/24 05:02 All radiology interpretation(s) finalized by discharge Discharge Plan Discharge Condition: Stable Prescriptions: No Action aspirin 81 mg tablet,delayed release (DR/EC) 81 mg PO DAILY metoprolol tartrate 25 mg tablet 25 mg PO DAILY lovastatin 20 mg tablet 20 mg PO DAILY levothyroxine 50 mcg tablet 50 mcg PO DAILY citalopram 20 mg tablet 20 mg PO DAILY amlodipine 5 mg tablet 5 mg PO DAILY methylprednisolone [Medrol (Grady)] 4 mg tablets,dose pack See Rx Instructions .ROUTE .COMPLEX Qty: 21 0RF Rx Instructions: orally per package directions lisinopril 20 mg tablet 20 mg PO DAILY Referrals: Anayeli Reaves MD [Primary Care Provider, Internal Medicine] Print Language: Swedish Coding Level of Care Code ED Director Export for Jamel Renee
[2024-12-24 05:50] LABS: Troponin(5th) Baseline 11 ng/L (0-10)
[2024-12-24 05:57] LABS: Influenza A NEGATIVE (Negative); Influenza B NEGATIVE (Negative); Respiratory Syncytial Virus Ce NEGATIVE (Negative); SARS-CoV-2 PCR NEGATIVE (Negative)
[2024-12-24] MEDS: ondansetron 2 mg/ML SDV 2 mL 4 MG IVP ×3 (06:01→14:15)
--- NOTE | 2024-12-24 06:02 | USCV_ITS ---
Klarissa Willson Age: 79 Gender: F : 1945 Exam Date: 12/24/2024 15:19 Ordering Phys: Garrett Berman MD Technologist: PANFILO Exam Location: [facility] [place] Indication: afib BP: 111 / 54 HR: 73 Rhythm: Sinus Technical Quality: Adequate MEASUREMENTS (Male / Female) Normal Values 2D ECHO LV Diastolic Diameter PLAX 5.5 cm 4.2 - 5.9 / 3.9 - 5.3 cm IVS Diastolic Thickness 1.0 cm 0.6 - 1.0 / 0.6 - 0.9 cm IVS Systolic Thickness 1.8 cm LVPW Diastolic Thickness 1.0 cm 0.6 - 1.0 / 0.6 - 0.9 cm LVPW Systolic Thickness 1.6 cm LVOT Diameter 2.0 cm LV Ejection Fraction 2D Teich 66.7 % LV Ejection Fraction MOD 4C 63.3 % LV Ejection Fraction MOD 2C 76.5 % LV Ejection Fraction 2C AL 79.7 % LA Diameter 3.1 cm RA Systolic Volume 4C AL 45.6 ml RA Systolic Volume 4C MOD 43.7 ml LA Sys Volume AL 50.3 cm cubed LA Sys Volume Index AL 32.9 cm cubed/m squared Aorta at Sinotubular Diameter 2.7 cm M-MODE LA Ao Ratio MM 1.6 AV Cusp Separation MM 1.3 cm DOPPLER AV Peak Velocity 137.0 cm/s LVOT Peak Velocity 155.0 cm/s AV Area Cont Eq vti 3.8 cm squared AV Area Cont Eq pk 3.6 cm squared MV Peak Velocity 104.0 cm/s MV Area PHT 4.3 cm squared Mitral E to A Ratio 1.2 TR Peak Velocity 256.0 cm/s TR Peak Gradient 26.2 mmHg TV Peak E Velocity 90.0 cm/s PV Peak Velocity 125.0 cm/s FINDINGS Left Ventricle Normal left ventricular size, systolic function and wall thickness, with no regional wall motion abnormalities. Left ventricular ejection fraction is estimated at 60 %. Grade II/IV diastolic dysfunction, moderately elevated filling pressures. Right Ventricle The right ventricle is normal in size and function. Right Atrium The right atrium is normal in size. Left Atrium The left atrium is normal in size. Mitral Valve Structurally normal mitral valve without significant stenosis or prolapse. There is no mitral regurgitation. Aortic Valve Structurally normal aortic valve without significant sclerosis or stenosis. There is no aortic regurgitation. Tricuspid Valve Trace tricuspid valve regurgitation. Pulmonic Valve Mild pulmonary valve regurgitation. Pericardium Normal pericardium without effusion. Aorta Normal ascending aorta dimension. IVC The inferior vena cava appears normal. CONCLUSIONS Normal left ventricular size, systolic function and wall thickness, with no regional wall motion abnormalities. Left ventricular ejection fraction is estimated at 60 %. Grade II/IV diastolic dysfunction, moderately elevated filling pressures. There is no pericardial effusion. No significant valve abnormalities. Right atrial pressure is around 5 mm of mercury. Erinn Hawk MD (Electronically Signed) Final Date: 25 Dec 2024 17:20 S
[2024-12-24 06:36] LABS: Procalcitonin 0.23 ng/mL (0-0.5)
[2024-12-24 06:43] LABS: Free T4 Free Thyroxine 1.68 ng/dL (0.82-1.77)
--- NOTE | 2024-12-24 07:10 | ECG_ITS ---
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1945 Requested By: Merritt Rivas Order Number: [id number] Reading MD: UGO HANEY Measurements Intervals [place] Rate: 97 P: 75 MO: 194 QRS: 91 QRSD: 76 T: 56 QT: 343 QTc: 437 Interpretive Statements SINUS RHYTHM WITH FREQUENT SUPRAVENTRICULAR PREMATURE COMPLEXES BORDERLINE RIGHT AXIS DEVIATION [QRS AXIS > 90] NONSPECIFIC T-WAVE ABNORMALITY ABNORMAL RHYTHM ECG Compared to ECG 12/24/2024 05:05:55 T-wave abnormality now present Atrial fibrillation no longer present Myocardial infarct finding no longer present Electronically Signed On 12-26-2024 16:30:48 CDT by UGO HANEY [id number]
[2024-12-24 07:27] LABS: Troponin 5 2HR 12.65 ng/L (0-10); Troponin 5 2HR Delta 1.65 ABS# (0-10)
[2024-12-24] MEDS: levothyroxine 50 mcg Tablet PO (07:51)
[2024-12-24] MEDS: aspirin 81 mg EC Tablet PO (07:52)
[2024-12-24] MEDS: pantoprazole 40 mg SDV IVP ×2 (07:52→22:05)
[2024-12-24] MEDS: atorvastatin 40 mg Tablet 20 MG PO (07:52)
[2024-12-24] MEDS: citalopram 20 mg Tablet PO (07:52)
[2024-12-24] MEDS: guaiFENesin 600 mg Tablet 1200 MG PO (07:58)
[2024-12-24] MEDS: enoxaparin 60 mg/0.6 mL Syringe 50 MG SUBCUT ×2 (07:58→22:04)
[2024-12-24] MEDS: metoprolol tartrate 25 mg Tablet PO ×2 (08:01→22:05)
[2024-12-24 09:53] LABS: C Reactive Protein 239.1 mg/L (0.0-4.9)
[2024-12-24 09:59] LABS: D Dimer 5.85 ug/mLFEU (0-0.59)
[2024-12-24] MEDS: dilTIAZem 30 mg Tablet PO ×3 (10:02→22:05)
[2024-12-24] MEDS: benzonatate 100 mg Capsule 200 MG PO ×2 (10:02→22:06)
[2024-12-24] MEDS: sodium chloride 0.9% 1,000 ML 50 ML IV (10:02)
--- NOTE | 2024-12-24 10:38 | CT_ITS ---
WS: [id number] CTA CHEST ABDOMEN AND PELVIS TECHNIQUE: Contrast-enhanced enhanced CTA of the chest, followed by abdomen, and pelvis with coronal and sagittal reformatted images and additional MIP Images. CLINICAL INFORMATION: sob, ABDOMINAL DISTENTION, PAIN COMPARISON: 08/03/2023 DLP: 699.[address] scans at [facility] use at least one of these dose optimization techniques: automated exposure control; mA and/or kV adjustment per patient size (includes targeted exams where dose is matched to clinical indication); or iterative reconstruction. FINDINGS: Tiny bilateral pleural effusions. Compressive atelectasis in the lung bases. 3 mm noncalcified nodule RIGHT upper lobe. Large esophageal hiatal hernia with partial intrathoracic stomach. Associated omental herniation with associated fluid. Aortic calcification. Proximal main pulmonary arteries are normal. Normal segmental and subsegmental pulmonary arteries. No evidence of pulmonary embolus. Moderate thoracic kyphosis. Chronic anterior wedging in the lower thoracic spine. Fatty liver. A few small low-attenuation lesions in the liver likely hepatic cysts. Portal vein and splenic vein are patent. Peritoneal nodularity in the upper abdomen suspicious for peritoneal carcinomatosis. Normal caliber abdominal aorta. Peripherally enhancing perihepatic and perisplenic fluid as well as fluid in the pelvis with peripheral enhancement. Peripheral enhancing interloop fluid scattered throughout the lower abdomen and pelvis. Sigmoid diverticulosis. No evidence of high-grade obstruction. Few air- fluid levels in normal caliber small bowel. Persistent air within the colon. Tethering of a few loops of small bowel in the midabdomen due to the suspected peritoneal carcinomatosis although no evidence of high-grade obstruction. CT/CT angio chest w abd pel w con IMPRESSION: 1. No evidence of pulmonary embolus. 2. Tiny bilateral pleural effusions. 3. Large esophageal hiatal hernia with partial intrathoracic stomach. 4. Diffuse nodular induration in the ventral abdominal mesentery suspicious fo r peritoneal carcinomatosis. Recommend correlation with history of malignancy. 5. Small volume perihepatic and perisplenic ascites with peripheral enhancemen t extending to the paracolic gutters. Moderate amount of fluid in the pelvis wi th peripheral enhancement. Recommend correlation for peritonitis versus pseudom yxoma peritonei. 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 No visualized uterus .
--- NOTE | 2024-12-24 10:58 | PC.NURSE ---
At ~0800. Dr Vieira into see patient this am. Received verbal orders as documented.
--- NOTE | 2024-12-24 10:59 | P.PN_ITS ---
Subjective 2 Subjective: Patient was seen this morning, she is sitting bed, currently in and out of atrial fibrillation heart rates as high as the 130s, discussed with nursing staff switching her to amiodarone drip she is currently on Cardizem drip at 10, normotensive complaining of fatigue, malaise, intermittent shortness of breath, abdominal pain, no chest pain, no lightheadedness, dizziness, does have a poor appetite, has nausea, she feels sickly Vitals/I&O/Wt Last Vital Signs Temp 98.0 F 12/24/24 04:55 Pulse 131 H 12/24/24 08:07 Resp 23 H 12/24/24 08:07 BP 124/62 12/24/24 08:07 Pulse Ox 95 12/24/24 08:07 O2 Del Method Room Air 12/24/24 06:11 12/23/24 12/24/24 12/24/24 22:59 06:59 14:59 Intake Total 1004.167 / 1004.167 272.75 / 272.75 Balance 1004.167 / 1004.167 272.75 / 272.75 Weight last 48 hrs Weight 52.617 kg Weight 52.617 kg Physical Exam 2 Const: COMMON NORMALS: no acute distress and patient oriented x3 HENMT: COMMON NORMALS: normocephalic HEAD & SCALP: normocephalic Cardio: COMMON NORMALS: regular rate, regular rhythm, S1 normal heart sound present and S2 normal heart sound present RATE: regular rate RHYTHM: r egular rhythm HEART SOUNDS: S1 normal heart sound present and S2 normal heart sound present GI: COMMON NORMALS: Normal to inspection, nondistended, normoactive bowel sounds present and non-tender Extremity: COMMON NORMALS: no calf tenderness Neuro: COMMON NORMALS: patient oriented x3 Psych: COMMON NORMALS: mental status grossly normal Data 12/24/24 05:02 12/24/24 05:02 A&P Assessment and plan (1) Atrial fibrillation: (2) Bronchitis: (3) Leukocytosis: (4) Thrombocytosis: (5) Hyponatremia: (6) Abnormal thyroid function test: Plan Newly diagnosed paroxysmal A-fib with a RVR - Telemetry monitoring - Continue Cardizem drip, switch to amiodarone drip -Full dose Lovenox - Monitor electrolytes - Check echocardiogram - Free thyroxine ordered Recent bronchitis - Chest x-ray negative for infiltrate - Status post steroids and doxycycline - Procalcitonin within normal limits, CRP 239 -D-dimer 5.85, will do CT angiogram of the chest - Kerry weeks - Supportive care Abdominal pain, weakness, diarrhea, CT scan abdomen pelvis Hypertension - Hold Norvasc while on Cardizem - Continue BB - Hold ACEI for now Hyperlipidemia - Continue statin Hypothyroidism - TSH mildly elevated, check free T4 within normal limits DVT ppx: Lovenox Full code PDMP PDMP Reviewed: Not Reviewed Attestations 2 Medical Necessity Statement*: Patient requires hospitalization for A-fib with RVR, recent bronchitis, abdominal pain, Diagnoses Atrial fibrillation I48.91 Bronchitis J40 Leukocytosis D72.829 Thrombocytosis D75.839 Hyponatremia E87.1 Abnormal thyroid function test R94.6
--- NOTE | 2024-12-24 11:10 | ECG_ITS ---
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
[2024-12-24 11:25] LABS: Troponin 5 6HR 14.47 ng/L (0-10); Troponin 5 6HR Delta 3.47 ng/L (0-12)
[2024-12-24 11:59] LABS: Adenovirus Not Detected (NOT DETECT); Chlamydia Pneumoniae Not Detected (NOT DETECT); Coronavirus 229E,HKU1,NL63,OC4 Not Detected (NOT DETECT); Human Metapneumovirus Not Detected (NOT DETECT); Human Rhinovirus/Enterovirus Not Detected (NOT DETECT); Influenza A Not Detected (NOT DETECT); Influenza A H1 Not Detected (NOT DETECT); Influenza A H1-2009 Not Detected (NOT DETECT); Influenza A H3 Not Detected (NOT DETECT); Influenza B Not Detected (NOT DETECT); Mycoplasma Pneumoniae Not Detected (NOT DETECT); Parainfluenza Virus Type 1 Not Detected (NOT DETECT); Parainfluenza Virus Type 2 Not Detected (NOT DETECT); Parainfluenza Virus Type 3 Not Detected (NOT DETECT); Parainfluenza Virus Type 4 Not Detected (NOT DETECT); Respiratory Syncytial Virus A Not Detected (NOT DETECT); Respiratory Syncytial Virus B Not Detected (NOT DETECT); SARS-COV-2 Not Detected (NOT DETECT)
--- NOTE | 2024-12-24 12:42 | PC.NURSE ---
Patient taken to CT at this time. Informed CT that patient is having difficulty swallowing oral contrast.
[2024-12-24] MEDS: iohexol 350 mg/mL 500 mL Btl (per mL) PO (12:44)
[2024-12-24] MEDS: iohexol 350 mg/mL 500 mL Btl (per mL) IV (12:58)
[2024-12-24] MEDS: acetaminophen 325 mg Tablet 650 MG PO (13:19)
[2024-12-24] MEDS: AZITHROMYCIN ADD-Vantage 500 MG in 0.9% NaCl ADD-Vantage 250 ML 250 MG IV (16:16)
[2024-12-24] MEDS: cefTRIAXone 1,000 mg SDV 1000 MG IVP (16:17)
--- NOTE | 2024-12-24 20:37 | XRR_ITS ---
PROCEDURE INFORMATION: Exam: XR Pelvis Exam date and time: 12/24/2024 9:07 PM Age: 79 years old Clinical indication: Injury or trauma; Fall; Blunt trauma (contusions or hematomas); Bilateral; Pelvic region; Prior surgery; Surgery date: 6+ months; Surgery type: Hysterectomy from uterine CA; Additional info: Fall, portable TECHNIQUE: Imaging protocol: Radiologic exam of the pelvis. Views: 1 or 2 view. COMPARISON: CT angio chest w abd pel w con 12/24/2024 12:48 PM FINDINGS: Bones/joints: No acute fracture. Soft tissues: Unremarkable. XR/XR pelvis 1-2V* [id number] IMPRESSION: No acute findings.
[2024-12-25] VITALS (8 sets, daily range): BP systolic 103–132; BP diastolic 42–72; PULSE 68–95; RESP 18–24; TEMP 36.4–38.1; O2SAT 90–94; BMI 20.5
[2024-12-25] MEDS: dilTIAZem 30 mg Tablet PO ×4 (03:13→21:29)
[2024-12-25] MEDS: guaiFENesin 600 mg Tablet 1200 MG PO (03:13)
[2024-12-25 03:18] LABS: Basophils % 0.3 %; Eosinophils # 0.1 10^3/uL (0.0-0.8); Eosinophils % 1.5 %; Hematocrit 31.2 % (36-47); Lymphocytes # 0.4 10^3/uL (0.8-4.8); Lymphocytes % 3.8 %; Mean Corpuscular HGB Conc 30.8 g/dL (30-55); Mean Corpuscular Hemoglobin 26.4 pg (27-33); Monocytes # 0.9 10^3/uL (0.2-0.9); Monocytes % 9.5 %; Neutrophils # 7.68 10^3/uL (1.8-7.7); Neutrophils % 84.1 %; Nucleated Red Blood Cells % 0 %; Platelet Count 522 10^3/cmm (157-399); Red Blood Count 3.63 10^6/uL (3.85-5.65); Red Cell Distribution Width 13.9 % (12.1-15.1); White Blood Count 9.14 10^3/uL (3.29-11.43)
--- NOTE | 2024-12-25 03:33 | PC.NURSE ---
Patient was placed on bsc to urinate. this nurse went to rm 105 to see new patient and heard someone scream help . This nurse ran into patient room and found her on her bottom on floor. I promptly helped patient up, assessed bottom and found a small red area on right lower cheek. Patient was stating that she was fine and that this happens all the time at home . Vitals were taken and Dr Berman and yamile mg was notified. Dr Berman put in order for pelvic xray.
[2024-12-25 03:37] LABS: Alanine Aminotransferase 11 U/L (0-33); Albumin Level 2.5 g/dL (3.5-5.2); Alkaline Phosphatase 96 U/L (35-105); Anion Gap 14.2 (5-19); Aspartate Amino Transferase 15 U/L (0-32); Blood Urea Nitrogen 10 mg/dL (8-23); Calcium 7.8 mg/dL (8.5-10.5); Carbon Dioxide 21 mmol/L (22-29); Chloride 101 mmol/L (98-107); Creatinine Clr Calc Pharmacy 43.3745; Globulin 2.8 g/dL (1.3-4.6); Glucose 94 mg/dL (65-115); Magnesium 1.9 mg/dL (1.7-2.3); Osmolality Calculated 273 mOsm/kg (285-295); Phosphorus 2.8 mg/dL (2.5-4.5); Potassium 4.2 mmol/L (3.5-5.1); Sodium 132 mmol/L (136-145); Total Bilirubin 0.3 mg/dL (0.15-1.2); Total Protein 5.3 g/dL (6.6-8.7)
[2024-12-25] MEDS: acetaminophen 325 mg Tablet 650 MG PO (04:51)
--- NOTE | 2024-12-25 07:26 | PC.NURSE ---
Received report from MARILU Mcqueen. This RN informed of patient fall during the night. xrays completed. Patient resting at this time with eyes closed and even respirations observed. Will continue to monitor.
--- NOTE | 2024-12-25 07:32 | PC.NURSE ---
was not able to keep up on patient charting due to patient care.
[2024-12-25] MEDS: sodium chloride 0.9% 1,000 ML 50 ML IV ×2 (08:58→20:15)
[2024-12-25] MEDS: pantoprazole 40 mg SDV IVP ×2 (08:58→20:04)
[2024-12-25] MEDS: atorvastatin 40 mg Tablet 20 MG PO (08:59)
[2024-12-25] MEDS: levothyroxine 50 mcg Tablet PO (08:59)
[2024-12-25] MEDS: enoxaparin 60 mg/0.6 mL Syringe 50 MG SUBCUT ×2 (08:59→19:20)
[2024-12-25] MEDS: citalopram 20 mg Tablet PO (08:59)
[2024-12-25] MEDS: aspirin 81 mg EC Tablet PO (08:59)
[2024-12-25] MEDS: metoprolol tartrate 25 mg Tablet PO ×2 (09:04→20:04)
--- NOTE | 2024-12-25 09:22 | PC.SLP ---
Attempted LEADERSHIP DEVELOPMENT INSTRUCTOR visit and patient refused. Still on clear liquid diet. Patient reported no difficulty with breakfast except for poor appetite.
--- NOTE | 2024-12-25 13:45 | PM.PN ---
Subjective Subjective: Patient was seen this morning, currently she is alert and oriented x 3, following all commands, does report abdominal distention, does report a cough, we had a detailed discussion about her hiatal hernia, my concerns for likely aspiration with her hiatal hernia we also discussed her CT scan abdomen pelvis findings of peritoneal carcinomatosis, discussed her perihepatic and perisplenic ascites, no significant clinical evidence of peritonitis present, concerns associated with patient's history of cervical cancer, she does report that she has had a hysterectomy and bilateral oophorectomy, she is upset with the news, discussed paracentesis, clinical monitoring, and outpatient follow-up with OB, she might need a PET scan, but the first step is to do an ultrasound paracentesis Vitals/I&O/Wt Last Vital Signs Temp 97.8 F 12/25/24 12:00 Pulse 71 12/25/24 12:00 Resp 22 H 12/25/24 12:00 BP 112/49 12/25/24 12:00 Pulse Ox 94 12/25/24 12:00 O2 Del Method Room Air 12/25/24 12:00 O2 Flow Rate 3.5 12/25/24 03:59 12/24/24 12/25/24 12/25/24 22:59 06:59 14:59 Intake Total 250 / 882.75 1000 / 1882.75 580 / 580 Balance 250 / 882.75 1000 / 1882.75 580 / 580 Weight last 48 hrs Weight 52.617 kg Weight 52.617 kg Weight 52.617 kg Physical Exam Const: COMMON NORMALS: no acute distress and patient oriented x3 HENMT: COMMON NORMALS: normocephalic HEAD & SCALP: normocephalic Resp: COMMON NORMALS: normal respiratory effort, No retractions and No use of accessory muscles AUSCULTATION: crackles and wheezes Cardio: COMMON NORMALS: regular rate, regular rhythm, S1 normal heart sound present and S2 normal heart sound present RATE: regular rate RHYTHM: regular rhythm HEART SOUNDS: S1 normal heart sound present and S2 normal heart sound present GI: COMMON NORMALS: Normal to inspection, nondistended, normoactive bowel sounds present and non-tender Extremity: COMMON NORMALS: no calf tenderness and no pedal edema Neuro: COMMON NORMALS: patient oriented x3 Psych: COMMON NORMALS: mental status grossly normal Data 12/25/24 03:10 12/25/24 03:10 A&P Assessment and plan (1) Atrial fibrillation: (2) Bronchitis: (3) Leukocytosis: (4) Thrombocytosis: (5) Hyponatremia: (6) Abnormal thyroid function test: Plan Newly diagnosed paroxysmal A-fib with a RVR - Telemetry monitoring - Continue Cardizem drip, switch to amiodarone drip -Full dose Lovenox - Monitor electrolytes - Check echocardiogram - Free thyroxine ordered Recent bronchitis, aspiration pneumonia -CT of the chest shows large esophageal hiatal hernia with partial intrathoracic stomach -Likely aspiration pneumonia associated with patient's hiatal hernia - Continue Rocephin, Zithromycin - Procalcitonin within normal limits, CRP 239 -D-dimer 5.85 - Tesdena weeks - Supportive care - Aspiration precautions, speech therapy eval Abdominal pain, weakness, diarrhea, CT scan abdomen pelvis 4. Diffuse nodular induration in the ventral abdominal mesentery suspicious for peritoneal carcinomatosis. Recommend correlation with history of malignancy. 5. Small volume perihepatic and perisplenic ascites with peripheral enhancement extending to the paracolic gutters. Moderate amount of fluid in the pelvis with peripheral enhancement. Recommend correlation for peritonitis versus pseudomyxoma peritonei. 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 No visualized uterus. 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 Aortic, negative for malignancy - Right external iliac, 1 lymph node negative for malignancy -Status post radiation therapy -CT scan 4. Diffuse nodular induration in the ventral abdominal mesentery suspicious for peritoneal carcinomatosis. Recommend correlation with history of malignancy. 5. Small volume perihepatic and perisplenic ascites with peripheral enhancement extending to the paracolic gutters. Moderate amount of fluid in the pelvis with peripheral enhancement. Recommend correlation for peritonitis versus pseudomyxoma peritonei. 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 No visualized uterus. - Order ultrasound paracentesis as above, for pathology -Will have her follow-up with OB as outpatient PDMP PDMP Reviewed: Not Reviewed Attestations Medical Necessity Statement*: Patient requires hospitalization for A-fib, abdominal pain, aspiration pneumonia, peritoneal carcinomatosis, inpatient, greater than 2 midnights Diagnoses Atrial fibrillation I48.91 Bronchitis J40 Leukocytosis D72.829 Thrombocytosis D75.839 Hyponatremia E87.1 Abnormal thyroid function test R94.6
--- NOTE | 2024-12-25 13:58 | US_ITS ---
WS: [id number] Limited abdomen ultrasound. HISTORY: Evaluate for paracentesis. Patient has a small amount of peritoneal fluid. There is a small amount of fluid in all 4 quadrants of the peritoneal cavity. This is only a small amount of fluid. Paracentesis would probably yield less than of 1000 cc. Patient has refused paracentesis. US/US abdomen lmt fluid [id number] IMPRESSION: Very small amount of peritoneal ascites. Patient has refused paracentesis at th is time.
--- NOTE | 2024-12-25 15:24 | PC.SOCIAL ---
IMM Explained to pt Pg 2 IMM. No questions voiced. Provided pt a copy. Pt signed a copy & insurance underwriter Initialed, dated, & timed it & placed it in the chart.
[2024-12-25] MEDS: cefTRIAXone 1,000 mg SDV 1000 MG IVP (16:13)
[2024-12-25] MEDS: AZITHROMYCIN ADD-Vantage 500 MG in 0.9% NaCl ADD-Vantage 250 ML 250 MG IV (16:13)
[2024-12-25] MEDS: LORazepam 2 mg/mL INJ 1 mL 0.5 MG IVP (16:16)
--- NOTE | 2024-12-25 16:36 | PC.NURSE ---
Patient to transfer to [place] [id number]. Report called to MARILU Pérez.
[2024-12-25 19:22] LABS: Hematocrit 31.9 % (36-47)
[2024-12-25] MEDS: ondansetron 2 mg/ML SDV 2 mL 4 MG IVP (20:05)
[2024-12-25] MEDS: benzonatate 100 mg Capsule 200 MG PO (21:34)
[2024-12-26] VITALS (11 sets, daily range): BP systolic 94–128; BP diastolic 54–65; PULSE 70–97; RESP 16–19; TEMP 36.2–36.9; O2SAT 90–92
[2024-12-26] MEDS: dilTIAZem 30 mg Tablet PO ×4 (03:05→21:22)
[2024-12-26] MEDS: acetaminophen 325 mg Tablet 650 MG PO ×3 (03:05→19:14)
[2024-12-26 03:59] LABS: Basophils % 0.4 %; Eosinophils # 0.1 10^3/uL (0.0-0.8); Eosinophils % 0.9 %; Hematocrit 29.5 % (36-47); Lymphocytes # 0.5 10^3/uL (0.8-4.8); Lymphocytes % 4.9 %; Mean Corpuscular HGB Conc 30.8 g/dL (30-55); Mean Corpuscular Hemoglobin 26.7 pg (27-33); Mean Corpuscular Volume 86.5 fl (85-98); Mean Platelet Volume 8.3 fL (7.4-10.4); Monocytes # 0.9 10^3/uL (0.2-0.9); Monocytes % 8.9 %; Neutrophils # 8.87 10^3/uL (1.8-7.7); Neutrophils % 84.3 %; Nucleated Red Blood Cells % 0 %; Platelet Count 577 10^3/cmm (157-399); Red Blood Count 3.41 10^6/uL (3.85-5.65)
[2024-12-26] MEDS: ketorolac 30 mg/mL INJ 15 MG IVP ×2 (04:14→19:40)
[2024-12-26 04:18] LABS: Alanine Aminotransferase 10 U/L (0-33); Albumin Level 2.4 g/dL (3.5-5.2); Alkaline Phosphatase 100 U/L (35-105); Anion Gap 14.3 (5-19); Aspartate Amino Transferase 16 U/L (0-32); Blood Urea Nitrogen 12 mg/dL (8-23); C Reactive Protein 220.6 mg/L (0.0-4.9); Calcium 7.8 mg/dL (8.5-10.5); Carbon Dioxide 20 mmol/L (22-29); Chloride 102 mmol/L (98-107); Creatinine Clr Calc Pharmacy 43.3745; Globulin 2.2 g/dL (1.3-4.6); Glucose 88 mg/dL (65-115); Osmolality Calculated 273 mOsm/kg (285-295); Phosphorus 3.2 mg/dL (2.5-4.5); Potassium 4.3 mmol/L (3.5-5.1); Sodium 132 mmol/L (136-145); Total Bilirubin 0.2 mg/dL (0.15-1.2); Total Protein 4.6 g/dL (6.6-8.7)
[2024-12-26 04:24] LABS: NT Pro B Type Natriuretic Pept 337 pg/mL (0-450)
[2024-12-26] MEDS: atorvastatin 40 mg Tablet 20 MG PO (09:21)
[2024-12-26] MEDS: levothyroxine 50 mcg Tablet PO (09:21)
[2024-12-26] MEDS: metoprolol tartrate 25 mg Tablet PO (09:22)
[2024-12-26] MEDS: sucralfate 1 gm/10 mL Oral Liq UDC PO ×2 (09:22→13:32)
[2024-12-26] MEDS: enoxaparin 60 mg/0.6 mL Syringe 50 MG SUBCUT ×2 (09:22→19:14)
[2024-12-26] MEDS: aspirin 81 mg EC Tablet PO (09:22)
[2024-12-26] MEDS: citalopram 20 mg Tablet PO (09:22)
[2024-12-26] MEDS: pantoprazole 40 mg SDV IVP ×2 (09:22→21:22)
[2024-12-26] MEDS: meropenem 500 mg SDV IVP ×2 (11:50→19:11)
--- NOTE | 2024-12-26 12:37 | P.PN_ITS ---
Subjective 2 Subjective: - Patient was seen this morning she cont inues to complain of fatigue, malaise, feeling unwell, diffuse musculoskeletal aches, her abdominal pain is improving, but continues to have abdominal pain she has not had a bowel movement - She is frustrated as I have not gotten her better - She feels that I am letting her - I discussed with her that she has been afebrile, normotensive, her cultures so far have been unremarkable - We discussed her hiatal hernia again m y concerns for aspiration pneumonia, discussed management techniques for aspiration pneumonia but she is on room air, her cough is improving - We then discussed her abdominal pain, discussed her CT scan findings - Yesterday I had scheduled a ultrasound paracentesis to see if I could get a sample of her peritoneal fluid, to help distinguish infection versus possible malignancy - However patient declined paracentesis yesterday - She tells me that if she has cancer, s he does not want to have any treatment, and she does not want to undergo any aggressive interventions such as testing - I had a detailed discussion with her a bout her CT scan abdomen and pelvis findings - She had diffuse nodular induration of the ventral abdominal mesentery suspicious for peritoneal carcinomatosis, there is also perihepatic perisplenic ascites - There is also the possibility of perit onitis that could be infectious - The only way I could know for certain is to do a paracentesis - Discussed with her that cancer is a ti ssue diagnosis, and that I can give her 100% answer until I have further testing, such as a paracentesis to look at peritoneal fluid under microscope to see if there is cancer cells or even PET scanning - But she is declined testing yesterday so I could not perform the tests - She is quite upset she tells me that w [facility] she had her cervical cancer, they did a hysterectomy and oophorectomy and lymph node biopsy and she had radiation therapy and they told her stage I, and she is shock that has come back - Discussed with patient that I cannot 1 00% say for certain if her cervical cancer has reoccurred and now with evidence of metastasis or this might be an new cancer primary unknown, or certainly could be something else such as peritonitis -However cancer is a tissue diagnosis -I need to do further testing such as pa racentesis, look at peritoneal fluid under a slide and even that is not 100%, as there can be sampling error -So I cannot guarantee that we will have 100% answer for her, in terms of her CT scan imaging findings, before she leaves the hospital -She is agreeable to do the paracentesis on Saturday -But then she tells me that if it is can cer she wants no treatment as she is gone under radiation therapy and surgery and she does not want to undergo it again, that she has seen her sister from cancer -I offered hospice to her however for no w she has declined, she remains a full code -But unfortunately Klarissa remains upset, s he continues to go in circles about how I am letting her , and that she was told that her cancer was stage I, and it would likely not recur -I apologized to Klarissa and advised her th at I am doing the best I can but plan for today is to help her have a bowel movement, I will broaden her antibiotic coverage to cover bacterial for peritonitis, morphine for pain Vitals/I&O/Wt Last Vital Signs Temp 97.1 F L 12/26/24 07:57 Pulse 88 12/26/24 09:01 Resp 16 12/26/24 07:57 BP 124/56 12/26/24 09:01 Pulse Ox 90 12/26/24 07:57 O2 Del Method Room Air 12/26/24 07:57 O2 Flow Rate 3.5 12/25/24 03:59 12/25/24 12/26/24 12/26/24 22:59 06:59 14:59 Intake Total 771.667 / 1351.667 718.333 / 718.333 Balance 771.667 / 1351.667 718.333 / 718.333 Weight last 48 hrs Weight 63.503 kg Weight 52.617 kg Physical Exam 2 Const: COMMON NORMALS: no acute distress and patient oriented x3 Neck/C-Spine: COMMON NORMALS: no JVD Resp: COMMON NORMALS: normal respiratory effort, No retractions, No use of accessory muscles and clear to auscultation bilaterally AUSCULTATION: clear to auscultation bilaterally Cardio: COMMON NORMALS: no JVD, regular rate, regular rhythm, S1 normal heart sound present and S2 normal heart sound present RATE: regular rate RHYTHM: regular rhythm HEART SOUNDS: S1 normal heart sound present and S2 normal heart sound present GI: COMMON NORMALS: Normal to inspection, nondistended, normoactive bowel sounds present and non-tender Extremity: COMMON NORMALS: no pedal edema Neuro: COMMON NORMALS: patient oriented x3 Psych: COMMON NORMALS: mental status grossly normal Data 12/26/24 02:21 12/26/24 02:21 A&P Assessment and plan (1) Atrial fibrillation: (2) Bronchitis: (3) Leukocytosis: (4) Thrombocytosis: (5) Hyponatremia: (6) Abnormal thyroid function test: Plan Newly diagnosed paroxysmal A-fib with a RVR - Telemetry monitoring - Continue Cardizem 30 every 6h -Continue metoprolol 25 mg twice daily -Full dose Lovenox - Monitor electrolytes - Check echocardiogram CONCLUSIONS Normal left ventricular size, systolic function and wall thickness, with no regional wall motion abnormalities. Left ventricular ejection fraction is estimated at 60 %. Grade II/IV diastolic dysfunction, moderately elevated filling pressures. There is no pericardial effusion. No significant valve abnormalities. Right atrial pressure is around 5 mm of mercury. - Free thyroxine ordered Recent bronchitis, aspiration pneumonia -CT of the chest shows large esophageal hiatal hernia with partial intrathoracic stomach -Likely aspiration pneumonia associated with patient's hiatal hernia - Antibiotics coverage broadened to meropenem - Procalcitonin within normal limits, CRP 239 -D-dimer 5.85 - Tesdavidon desi - Supportive care - Aspiration precautions, speech therapy eval Abdominal pain, weakness, diarrhea, CT scan abdomen pelvis 4. Diffuse nodular induration in the ventral abdominal mesentery suspicious for peritoneal carcinomatosis. Recommend correlation with history of malignancy. 5. Small volume perihepatic and perisplenic ascites with peripheral enhancement extending to the paracolic gutters. Moderate amount of fluid in the pelvis with peripheral enhancement. Recommend correlation for peritonitis versus pseudomyxoma peritonei. 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 No visualized uterus. 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 Aortic, negative for malignancy - Right external iliac, 1 lymph node negative for malignancy -Status post radiation therapy -CT scan 4. Diffuse nodular induration in the ventral abdominal mesentery suspicious for peritoneal carcinomatosis. Recommend correlation with history of malignancy. 5. Small volume perihepatic and perisplenic ascites with peripheral enhancement extending to the paracolic gutters. Moderate amount of fluid in the pelvis with peripheral enhancement. Recommend correlation for peritonitis versus pseudomyxoma peritonei. 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 No visualized uterus. - Order ultrasound paracentesis as above, for pathology on Saturday -Will have her follow-up with OB as outpatient PDMP PDMP Reviewed: Not Reviewed Attestations 2 Medical Necessity Statement*: Patient requires hospitalization for aspiration pneumonia, abdominal pain, atrial fibrillation Diagnoses Atrial fibrillation I48.91 Bronchitis J40 Leukocytosis D72.829 Thrombocytosis D75.839 Hyponatremia E87.1 Abnormal thyroid function test R94.6
[2024-12-26 12:51] LABS: Hematocrit 28.9 % (36-47)
[2024-12-26 13:21] LABS: CA 125 54.6 U/mL (0-35)
[2024-12-26] MEDS: polyethylene glycol 3350 Pkt 17 gm PO (13:32)
[2024-12-26] MEDS: sennosides-docusate Tablet 1 TAB PO ×2 (13:32→17:12)
[2024-12-26] MEDS: morphine 4 mg/mL SDV 1 mL 2 MG IVP ×2 (17:11→21:21)
[2024-12-26] MEDS: ondansetron 2 mg/ML SDV 2 mL 4 MG IVP ×2 (18:14→19:48)
[2024-12-26] MEDS: LORazepam 2 mg/mL INJ 1 mL 0.5 MG IVP (21:21)
[2024-12-27] VITALS (13 sets, daily range): BP systolic 100–148; BP diastolic 45–65; PULSE 77–101; RESP 16–20; TEMP 36.5–37.4; O2SAT 83–93
[2024-12-27] MEDS: morphine 4 mg/mL SDV 1 mL 2 MG IVP (02:29)
[2024-12-27] MEDS: meropenem 500 mg SDV IVP ×3 (03:00→18:40)
[2024-12-27] MEDS: dilTIAZem 30 mg Tablet PO ×4 (03:00→21:01)
[2024-12-27 05:24] LABS: Basophils % 0.1 %; Eosinophils % 0.1 %; Hematocrit 29.7 % (36-47); Lymphocytes # 0.4 10^3/uL (0.8-4.8); Lymphocytes % 2.6 %; Mean Corpuscular Volume 87.1 fl (85-98); Mean Platelet Volume 8.2 fL (7.4-10.4); Monocytes # 0.9 10^3/uL (0.2-0.9); Monocytes % 6.9 %; Neutrophils # 12.11 10^3/uL (1.8-7.7); Neutrophils % 89.4 %; Nucleated Red Blood Cells % 0 %; Platelet Count 573 10^3/cmm (157-399); Red Blood Count 3.41 10^6/uL (3.85-5.65); White Blood Count 13.55 10^3/uL (3.29-11.43)
[2024-12-27 05:44] LABS: Alanine Aminotransferase 10 U/L (0-33); Albumin Level 2.3 g/dL (3.5-5.2); Alkaline Phosphatase 110 U/L (35-105); Anion Gap 19.9 (5-19); Aspartate Amino Transferase 19 U/L (0-32); Blood Urea Nitrogen 14 mg/dL (8-23); C Reactive Protein 211.8 mg/L (0.0-4.9); Carbon Dioxide 15 mmol/L (22-29); Chloride 101 mmol/L (98-107); Creatinine Clr Calc Pharmacy 55.0204; Globulin 2.9 g/dL (1.3-4.6); Glucose 97 mg/dL (65-115); Magnesium 1.9 mg/dL (1.7-2.3); Osmolality Calculated 274 mOsm/kg (285-295); Phosphorus 3.4 mg/dL (2.5-4.5); Potassium 3.9 mmol/L (3.5-5.1); Sodium 132 mmol/L (136-145); Total Bilirubin 0.2 mg/dL (0.15-1.2); Total Protein 5.2 g/dL (6.6-8.7)
[2024-12-27 06:11] LABS: NT Pro B Type Natriuretic Pept 553 pg/mL (0-450)
--- NOTE | 2024-12-27 06:41 | PHA.VACGOAL ---
Vancomycin Goal - Goal Vancomycin Goal:: 10-15 mg/L Vancomycin Indication:: Other - Therapy Current therapy:: Meropenem Day of therpy:: Day []of [] . Actual body weight (kg): 152 lb 14.4 oz - Data Labs: WBC 13.55 10^3/uL (3.29-11.43) H 12/27/24 04:21 RBC 3.41 10^6/uL (3.85-5.65) L 12/27/24 04:21 Hgb 9.20 g/dL (11.27-16.99) L 12/27/24 04:21 Hct 29.7 % (36-47) L 12/27/24 04:21 MCV 87.1 fl (85-98) 12/27/24 04:21 MCH 27.0 pg (27-33) 12/27/24 04:21 MCHC 31.0 g/dL (30-55) 12/27/24 04:21 RDW 14.0 % (12.1-15.1) 12/27/24 04:21 Sodium 132 mmol/L (136-145) L 12/27/24 04:21 Potassium 3.9 mmol/L (3.5-5.1) 12/27/24 04:21 Chloride 101 mmol/L (98-107) 12/27/24 04:21 Carbon Dioxide 15 mmol/L (22-29) L 12/27/24 04:21 Anion Gap 19.9 (5-19) H 12/27/24 04:21 BUN 14 mg/dL (8-23) 12/27/24 04:21 Creatinine 0.8 mg/dL (0.5-0.9) 12/27/24 04:21 GFR Calculation Not Reportable 12/27/24 04:21 Last dialysis session:: N/A Treatment plan:: new consult <[facility] - Last Filed: 12/27/24 06:41> - Goal Vancomycin Goal:: 15-20 mg/L Vancomycin Indication:: Pneumonia - Therapy Day of therpy:: Day []of [] . - Data Labs: WBC 19.52 10^3/uL (3.29-11.43) H 12/28/24 06:23 RBC 3.70 10^6/uL (3.85-5.65) L 12/28/24 06:23 Hgb 9.40 g/dL (11.27-16.99) L 12/28/24 09:53 Hct 29.3 % (36-47) L 12/28/24 09:53 MCV 83.5 fl (85-98) L 12/28/24 06:23 MCH 26.8 pg (27-33) L 12/28/24 06:23 MCHC 32.0 g/dL (30-55) 12/28/24 06:23 RDW 14.3 % (12.1-15.1) 12/28/24 06:23 Sodium 131 mmol/L (136-145) L 12/28/24 06:23 Potassium 3.9 mmol/L (3.5-5.1) 12/28/24 06:23 Chloride 97 mmol/L (98-107) L 12/28/24 06:23 Carbon Dioxide 19 mmol/L (22-29) L 12/28/24 06:23 Anion Gap 18.9 (5-19) 12/28/24 06:23 BUN 13 mg/dL (8-23) 12/28/24 06:23 Creatinine 0.7 mg/dL (0.5-0.9) 12/28/24 06:23 GFR Calculation Not Reportable 12/28/24 06:23 Regimen:: TROUGH 12/29 1300 <Ramiro Murillo - Last Filed: 12/28/24 15:38>
--- NOTE | 2024-12-27 08:33 | P.PN_ITS ---
Subjective 2 Subjective: Patient was seen this morning, she is currently alert oriented and x 2, following all commands, she tells me she had a difficult night, throughout the night she had a sense of impending doom, she feels that she is going to in the hospital - She does report a history of anxiety, she is on citalopram - The Ativan did work, which made her sl eepy, we discussed trying Xanax - I did detailed discussion with Klarissa reyez out her overall condition, discussed her CT scans findings again - Discussed with her that cancer is a ti ssue diagnosis, and that we need to see it under microscope before telling her if it is malignancy or not - Tells her that her abdomen does feel b ash, she has had a bowel movement, but irregular does not have a bowel movement every single day - She does have a superficial hematoma o n the left buttock she tells me that she has had a fall sometime ago, denies following in the hospital, will hold her therapeutic Lovenox for now, do CT scan abdomen pelvis - No lightheadedness, no dizziness, no c hest pain - We discussed with her that the plan is to do a paracentesis tomorrow she is in agreement - She tells me that she feels weak all o stacie weak, weakness and fatigue she think she needs to go to a care home for rehab - We discussed having case management lo ok at that tomorrow - Will have her try to set up out of bed today, maybe sit up in a chair, work with physical therapy today and tomorrow, and give her time - Discussed with her that plan [place] [facility] [place] is to do a paracentesis and have her follow-up with oncology as outpatient - Today I would hold the therapeutic Shailesh enox, do a CT scan abdomen pelvis because she has his buttocks hematoma - Did discuss her CA125 54.6 Vitals/I&O/Wt Last Vital Signs Temp 98.4 F 12/27/24 07:34 Pulse 99 12/27/24 07:34 Resp 19 H 12/27/24 07:34 BP 125/45 12/27/24 07:34 Pulse Ox 91 12/27/24 07:34 O2 Del Method Room Air 12/27/24 07:34 O2 Flow Rate 3.5 12/25/24 03:59 12/26/24 12/27/2425 22:59 06:59 14:59 Intake Total 160 / 878.333 241.667 / 241.667 Balance 160 / 878.333 241.667 / 241.667 Weight last 48 hrs Weight 69.354 kg Weight 63.503 kg Physical Exam 2 Const: COMMON NORMALS: no acute distress and patient oriented x3 Resp: COMMON NORMALS: normal respiratory effort, No retractions, No use of accessory muscles and clear to auscultation bilaterally AUSCULTATION: clear to auscultation bilaterally Cardio: COMMON NORMALS: regular rate, regular rhythm, S1 normal heart sound present and S2 normal heart sound present RATE: regular rate RHYTHM: r egular rhythm HEART SOUNDS: S1 normal heart sound present and S2 normal heart sound present GI: COMMON NORMALS: Normal to inspection, nondistended, normoactive bowel sounds present and non-tender Back/Pelvis: OTHER: Left buttocks, superficial hematoma, denies any pain, 5 x 5 cm Extremity: COMMON NORMALS: no pedal edema Neuro: COMMON NORMALS: patient oriented x3 Psych: COMMON NORMALS: mental status grossly normal Data 12/27/24 04:21 12/27/24 04:21 A&P Assessment and plan (1) Atrial fibrillation: (2) Bronchitis: (3) Leukocytosis: (4) Thrombocytosis: (5) Hyponatremia: (6) Abnormal thyroid function test: Plan Newly diagnosed paroxysmal A-fib with a RVR - Telemetry monitoring - Continue Cardizem 30 every 6h -Continue metoprolol 25 mg twice daily -Full dose Lovenox, currently on hold due to anemia, left buttocks hematoma - Monitor electrolytes - Check echocardiogram CONCLUSIONS Normal left ventricular size, systolic function and wall thickness, with no regional wall motion abnormalities. Left ventricular ejection fraction is estimated at 60 %. Grade II/IV diastolic dysfunction, moderately elevated filling pressures. There is no pericardial effusion. No significant valve abnormalities. Right atrial pressure is around 5 mm of mercury. - Free thyroxine ordered Left buttocks hematoma - Hemoglobin 9.2 - Will do CT scan abdomen pelvis with IV contrast - Protonix, Carafate - Hold Lovenox Recent bronchitis, aspiration pneumonia -CT of the chest shows large esophageal hiatal hernia with partial intrathoracic stomach -Likely aspiration pneumonia associated with patient's hiatal hernia - Antibiotics coverage broadened to meropenem, vancomycin - Procalcitonin within normal limits, CRP 239 -D-dimer 5.85 - Kerry weeks - Supportive care - Aspiration precautions, speech therapy eval Abdominal pain, weakness, diarrhea, CT scan abdomen pelvis 4. Diffuse nodular induration in the ventral abdominal mesentery suspicious for peritoneal carcinomatosis. Recommend correlation with history of malignancy. 5. Small volume perihepatic and perisplenic ascites with peripheral enhancement extending to the paracolic gutters. Moderate amount of fluid in the pelvis with peripheral enhancement. Recommend correlation for peritonitis versus pseudomyxoma peritonei. 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 No visualized uterus. - No tenderness on examination today - Patient declined paracentesis on Saturday -Reorder paracentesis for Saturday - Add meropenem, Vancomycin to cover for possible peritonitis such as spontaneous bacterial peritonitis Fatigue, malaise, weakness, deconditioning - PT OT - Potential associated peritoneal carcinomatosis? 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 Aortic, negative for malignancy - Right external iliac, 1 lymph node negative for malignancy -Status post radiation therapy -CT scan 4. Diffuse nodular induration in the ventral abdominal mesentery suspicious for peritoneal carcinomatosis. Recommend correlation with history of malignancy. 5. Small volume perihepatic and perisplenic ascites with peripheral enhancement extending to the paracolic gutters. Moderate amount of fluid in the pelvis with peripheral enhancement. Recommend correlation for peritonitis versus pseudomyxoma peritonei. 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 No visualized uterus. - Order ultrasound paracentesis as above, for pathology on Saturday -Will have her follow-up with OB as outpatient Goals of care discussion, she wants to pursue evaluation for her possible peritoneal carcinomatosis, but she tells me that if she this does proved to be cancer she wants to consider hospice for now she wants to go to a residential facility, PDMP PDMP Reviewed: Not Reviewed Attestations 2 Medical Necessity Statement*: Patient requires hospitalization for left buttocks hematoma, aspiration pneumonia, Diagnoses Atrial fibrillation I48.91 Bronchitis J40 Leukocytosis D72.829 Thrombocytosis D75.839 Hyponatremia E87.1 Abnormal thyroid function test R94.6
--- NOTE | 2024-12-27 08:33 | CTR_ITS ---
PROCEDURE INFORMATION: Exam: CT Abdomen And Pelvis With Contrast Exam date and time: 12/27/2024 10:37 AM Age: 79 years old Clinical indication: Injury or trauma; Fall; Abdominal tenderness; Blunt; Generalized; Additional info: Hematoma left buttock TECHNIQUE: Imaging protocol: Computed tomography of the abdomen and pelvis with contrast. Radiation optimization: All CT scans at this facility use at least one of these dose optimization techniques: automated exposure control; mA and/or kV adjustment per patient size (includes targeted exams where dose is matched to clinical indication); or iterative reconstruction. Contrast material: OMNIPAQUE 350; Contrast volume: 100 ml; Contrast route: INTRAVENOUS (IV); COMPARISON: CT angio chest w abd pel w con 12/24/2024 12:48 PM RADIATION DOSE METRICS: Total DLP (mGy-cm): 556.65 FINDINGS: Lungs: Small amount of increased atelectasis and/or pneumonitis in the lung bases. Pleural spaces: Increased small bilateral pleural effusions. Diaphragm: Unchanged hiatal hernia. Liver: A few small liver cysts are unchanged, and need no follow-up. Otherwise, unremarkable. Gallbladder and biliary ducts: Increased distension of gallbladder. Increased mild bile duct dilatation with common bile duct measuring 8 mm in diameter. Pancreas: Normal. No ductal dilation. Spleen: Normal. No splenomegaly. Adrenal glands: Normal. No mass. Kidneys and ureters: A few unchanged tiny renal cysts need no follow-up. Otherwise, unremarkable. Stomach and bowel: Again noted are diverticula from the colon. No obvious diverticulitis or other acute bowel pathology, but evaluation for such is quite limited due to the adjacent fluid and fat stranding. Appendix: The appendix is not identified. Intraperitoneal space: Unchanged large amount of simple free intraperitoneal fluid with unchanged findings of possible carcinomatosis and peritonitis. No free air. Vasculature: Unchanged small amount of arterial plaque. Otherwise, unremarkable. Lymph nodes: Unremarkable. No enlarged lymph nodes. Urinary bladder: Unremarkable. Reproductive: Unchanged hysterectomy. Otherwise, unremarkable. Bones/joints: Unchanged minimal multilevel spondylosis. Unchanged mild grade 1 spondylolisthesis of L4 anteriorly on L5. Unchanged chronic moderate compression deformity T10 vertebral body. No other fractures. No dislocation or diastasis. Otherwise, unremarkable. Soft tissues: New cluster of tiny hyperdense foci in inferior right gluteal musculature indicates bleeding. Tiny amounts of new blood in the adjacent fat. Increasing diffuse body wall edema suggests developing anasarca. Otherwise, unremarkable visualized body wall. Otherwise, unremarkable soft tissues. CT/CT abdomen pelvis w con* [id number] IMPRESSION: 1. New cluster of tiny hyperdense foci in inferior right gluteal musculature indicates bleeding. Tiny amounts of new blood in the adjacent fat. 2. Unchanged large amount of simple free intraperitoneal fluid with unchanged findings of possible carcinomatosis and peritonitis. 3. Increased distension of gallbladder. Increased mild bile duct dilatation with common bile duct measuring 8 mm in diameter. Uncertain etiology. Consider MRCP and/or ERCP for this. 4. No acute fractures. 5. Additional details as above.
[2024-12-27] MEDS: sennosides-docusate Tablet 1 TAB PO ×2 (08:55→17:38)
[2024-12-27] MEDS: levothyroxine 50 mcg Tablet PO (08:55)
[2024-12-27] MEDS: citalopram 20 mg Tablet PO (08:55)
[2024-12-27] MEDS: atorvastatin 40 mg Tablet 20 MG PO (08:55)
[2024-12-27] MEDS: pantoprazole 40 mg SDV IVP ×2 (08:56→19:56)
[2024-12-27] MEDS: aspirin 81 mg EC Tablet PO (08:56)
[2024-12-27] MEDS: metoprolol tartrate 25 mg Tablet PO (10:03)
[2024-12-27] MEDS: VANCOMYCIN ADD-Vantage 1,000 MG in 0.9% NaCl ADD-Vantage 250 ML 250 MG IV (10:03)
[2024-12-27] MEDS: iohexol 350 mg/mL 500 mL Btl (per mL) IV (10:45)
[2024-12-27] MEDS: sodium bicarbonate 50 MEQ in sodium chloride 0.45% 1,000 ML 100 MEQ IV ×2 (11:33→23:08)
[2024-12-27 12:15] LABS: Hematocrit 30.6 % (36-47)
[2024-12-27] MEDS: sucralfate 1 gm/10 mL Oral Liq UDC PO (14:11)
[2024-12-27] MEDS: ALPRAZolam 0.5 mg Tablet 0.25 MG PO ×2 (15:17→20:22)
[2024-12-27 15:48] LABS: Hematocrit 30.2 % (36-47)
[2024-12-27] MEDS: ondansetron 2 mg/ML SDV 2 mL 4 MG IVP (15:54)
[2024-12-27] MEDS: diphenhydrAMINE 25 mg Capsule PO (16:32)
[2024-12-27] MEDS: polyethylene glycol 3350 Pkt 17 gm PO (17:38)
[2024-12-27] MEDS: dexamethasone 10 mg/mL INJ 6 MG IVP (17:38)
[2024-12-27] MEDS: benzonatate 100 mg Capsule 200 MG PO (21:45)
[2024-12-28] VITALS (9 sets, daily range): BP systolic 95–142; BP diastolic 58–70; PULSE 70–102; RESP 16–19; TEMP 36.4–37.1; O2SAT 90–96
[2024-12-28 01:07] LABS: Hematocrit 29.4 % (36-47)
[2024-12-28] MEDS: VANCOMYCIN ADD-Vantage 1,000 MG in 0.9% NaCl ADD-Vantage 250 ML 250 MG IV ×2 (01:38→22:34)
[2024-12-28] MEDS: meropenem 500 mg SDV IVP ×2 (03:05→11:42)
[2024-12-28] MEDS: dilTIAZem 30 mg Tablet PO ×4 (03:05→22:33)
[2024-12-28 07:00] LABS: Basophils % 0.1 %; Hematocrit 30.9 % (36-47); Lymphocytes # 0.2 10^3/uL (0.8-4.8); Lymphocytes % 1.2 %; Mean Corpuscular Hemoglobin 26.8 pg (27-33); Mean Corpuscular Volume 83.5 fl (85-98); Mean Platelet Volume 8.1 fL (7.4-10.4); Monocytes # 0.3 10^3/uL (0.2-0.9); Monocytes % 1.6 %; Neutrophils # 18.74 10^3/uL (1.8-7.7); Nucleated Red Blood Cells % 0 %; Platelet Count 660 10^3/cmm (157-399); Red Cell Distribution Width 14.3 % (12.1-15.1); White Blood Count 19.52 10^3/uL (3.29-11.43)
[2024-12-28 07:16] LABS: INR 1.02 (0.8-1.2)
[2024-12-28 07:18] LABS: Alanine Aminotransferase 11 U/L (0-33); Albumin Level 2.6 g/dL (3.5-5.2); Alkaline Phosphatase 125 U/L (35-105); Anion Gap 18.9 (5-19); Aspartate Amino Transferase 18 U/L (0-32); Blood Urea Nitrogen 13 mg/dL (8-23); C Reactive Protein 292.8 mg/L (0.0-4.9); Calcium 8.5 mg/dL (8.5-10.5); Carbon Dioxide 19 mmol/L (22-29); Chloride 97 mmol/L (98-107); Creatinine Clr Calc Pharmacy 55.0375; Globulin 3.5 g/dL (1.3-4.6); Glucose 114 mg/dL (65-115); Magnesium 2.1 mg/dL (1.7-2.3); Osmolality Calculated 273 mOsm/kg (285-295); Phosphorus 2.5 mg/dL (2.5-4.5); Potassium 3.9 mmol/L (3.5-5.1); Sodium 131 mmol/L (136-145); Total Bilirubin 0.4 mg/dL (0.15-1.2); Total Protein 6.1 g/dL (6.6-8.7)
[2024-12-28 07:52] LABS: NT Pro B Type Natriuretic Pept 1148 pg/mL (0-450)
--- NOTE | 2024-12-28 08:31 | US_ITS ---
WS: [id number] ULTRASOUND-GUIDED PARACENTESIS CLINICAL INFORMATION: peritoneal fluid COMPARISON: None. Procedure Informed consent: The risks, benefits, and alternatives of the procedure were discussed with the patient. Verbal and written consent was obtained. Timeout: A timeout was performed to confirm the correct patient, procedure, and site. Preparation: A suitable skin site was identified. The patient was prepped and draped in usual sterile fashion. Lidocaine 1% was used for local anesthesia. Catheter: 4 Georgian One-step Yueh catheter. Side: LEFT lower quadrant. Fluid Volume: 1000 ml Color: Dark brown DISPOSITION: Discarded safely. Complications: None. US/US paracentesis abd w [id number] IMPRESSION: 1. Uncomplicated ultrasound-guided paracentesis. 2. Removal of 1000 cc 3. Fluid sent for requested diagnostic tests.
[2024-12-28 10:00] LABS: Hematocrit 29.3 % (36-47)
[2024-12-28] MEDS: citalopram 20 mg Tablet PO (10:51)
[2024-12-28] MEDS: atorvastatin 40 mg Tablet 20 MG PO (10:51)
[2024-12-28] MEDS: pantoprazole 40 mg SDV IVP ×2 (10:52→22:33)
[2024-12-28] MEDS: levothyroxine 50 mcg Tablet PO (10:52)
[2024-12-28] MEDS: sennosides-docusate Tablet 1 TAB PO ×2 (10:52→18:17)
[2024-12-28] MEDS: sodium bicarbonate 50 MEQ in sodium chloride 0.45% 1,000 ML 100 MEQ IV (12:41)
--- NOTE | 2024-12-28 13:42 | PM.PN ---
Subjective Subjective: Hospital course, labs appreciated. Seen with caregiver at bedside. Patient sitting up at the edge of the bed. Worked with physical therapy. Seems anxious. Denies any nausea, vomiting, headache. States does not like the food she is getting and would want to be transition to regular diet. Vitals/I&O/Wt Last Vital Signs Temp 98.0 F 12/28/24 12:01 Pulse 91 12/28/24 12:01 Resp 19 H 12/28/24 12:01 BP 122/65 12/28/24 12:01 Pulse Ox 91 12/28/24 12:01 O2 Del Method Nasal Cannula 12/28/24 12:01 O2 Flow Rate 3 12/28/24 04:00 12/27/24 12/28/24 12/28/24 22:59 06:59 14:59 Intake Total 1140 / 1751.667 466.667 / 2218.334 1410 / 1410 Output Total 200 / 200 Balance 1140 / 1751.667 466.667 / 2218.334 1210 / 1210 Weight last 48 hrs Weight 69.4 kg Weight 69.354 kg Physical Exam Narrative: General: Patient is awake and alert. Cough present. Head: Normocephalic. Atraumatic. EOM intact. Dry mucous membranes. Neck: No JVD. Cardiovascular: No gallops. No murmurs. Irregularly irregular rhythm. Lungs: Clear to auscultation, no use of accessory muscles, no crackles or wheezes. Cough present. Skin: No jaundice. No rashes. Abdomen: Normal bowel sounds, abdomen soft and nontender. Extremities: No cyanosis or clubbing. Musculoskeletal: No swollen or erythematous joints. Neurological: Moves all 4 extremities. No myoclonus. Data 12/28/24 09:53 12/28/24 06:23 Micro: Microbiology 12/27/24 16:23 Urine Culture - Preliminary Urine,Voided 12/27/24 09:10 Blood Culture - Preliminary Blood NEGATIVE TO DATE 12/27/24 09:00 Blood Culture - Preliminary Blood NEGATIVE TO DATE A&P Assessment and plan (1) Atrial fibrillation: (2) Aspiration pneumonia: (3) Bronchitis: (4) Leukocytosis: (5) Ascites: (6) Fall: (7) Hematoma: (8) Thrombocytosis: (9) Hypertension: (10) Hyponatremia: (11) Abnormal thyroid function test: Plan Newly diagnosed paroxysmal A-fib with a RVR Currently rate controlled. electronic device monitor. Continue with Cardizem 30 mg every 6 hourly, metoprolol 25 mg twice daily. Therapeutic Lovenox on hold for now due to left buttock hematoma leading to anemia post fall with patient requiring paracentesis. Echocardiogram shows EF of 60% with grade 2 diastolic dysfunction. TSH found to be 4.75. Appreciate normal free T4 levels. Leukocytosis: Most likely in setting of aspiration pneumonia. Patient is having diarrhea cannot rule out C. difficile. Did have bleeding/hematoma post fall. Cannot rule out reactive as also has thrombocytosis. Check stool for C. difficile, MRSA PCR. Continue with aspiration precautions. Advance diet as per speech evaluation. Rule out SBP though unlikely. For now continue IV vancomycin and meropenem. Discontinue vancomycin if MRSA swab negative. Increase dose of meropenem to 1 g 3 times daily. Ascites: Concerns for carcinomatosis. Does have history of cervical cancer in the past. Plan for paracentesis. Will request cytology. Fall: Mechanical. PT/OT. Fall precaution. Appreciate CT abdomen pelvis with concern for hematoma in the hip. Hemoglobin so far stable. Continue to monitor hemoglobin daily. Target hemoglobin more than 7. Hypertension: Goal blood pressure less than 140/90 mmHg. Blood pressure stable. Continue to hold off on antihypertensive. Aspiration pneumonia: Antibiotic as above. Currently on dysphagia level 4 diet with extremely thickened liquid. Advance diet as per speech evaluation. CODE STATUS: Discussed in detail with patient and caregiver at bedside. Patient does not want any heroic measures in case of cardiac arrest. CODE STATUS changed to DNR/DNI. Patient does not think she would pursue any treatment for cancer if there is any concern for carcinomatosis. Did discuss for hospice if any concerns for cancer. Patient states she is agreeable to hospice if it comes out to be cancer. Dysphagia level 4 diet. SCD for DVT prophylaxis as patient was requiring paracentesis, left hip hematoma post fall. Protonix OPD prophylaxis Fatigue/malaise/weakness: PT/OT. Discussed discharge plan in detail with the patient. Discussed about possible discharge to SNF versus home with home health. Patient for now is agreeable with home with home meds. PDMP PDMP Reviewed: Not Reviewed Attestations Medical Necessity Statement*: Requires further hospitalization for management of leukocytosis in setting of aspiration pneumonia, ascites since with high concern for carcinomatosis requiring paracentesis, leukocytosis while safe discharge planning is soft Diagnoses Atrial fibrillation I48.91 Aspiration pneumonia J69.0 Bronchitis J40 Leukocytosis D72.829 Ascites R18.8 Fall W19.XXXA Hematoma T14.8XXA Thrombocytosis D75.839 Hypertension I10 Hyponatremia E87.1 Abnormal thyroid function test R94.6
[2024-12-28] MEDS: FUROsemide 10 mg/mL SDV 2mL 20 MG IVP (14:03)
[2024-12-28 14:19] LABS: Iron 14 ug/dL (37-145); Percent Saturation 7.5 % (20-50); Total Iron Binding Capacity 186 mcg/dl; Unsaturated Iron Binding 172 ug/dL (112-347)
[2024-12-28 14:35] LABS: Procalcitonin 0.28 ng/mL (0-0.5)
[2024-12-28 14:41] LABS: Estmated Average Glucose 105; Hemoglobin A1C 5.3 % (4.0-6.0)
[2024-12-28 14:52] LABS: Vitamin B12 > 2000 pg/mL (232-1245)
[2024-12-28 15:45] LABS: MRSA PCR OZH (swab) NOT DETECTED (Not Detecte)
[2024-12-28 15:59] LABS: Apprearance, Body Fluid TURBID; Color, Body Fluid RED; Cyto Order Verification Order Verified; Fluid Laterality PARA FLUID; PATH Referral YES
[2024-12-28 16:01] LABS: Body Fluid Polynuclear #Cells 0.997; Body Fluid WBC 2393 /uL; Monocytes # Body Fluid 1.396
[2024-12-28 16:05] LABS: Body Fluid Specific Gravity 1.025
[2024-12-28 16:22] LABS: Cholesterol Body Fluid 72 mg/dL (0-200); Fluid Alkaline Phos. 52 IU/L; LDH Body Fluid 605 U/L; Total Protein Body Fluid 3.5 g/dL; Triglycerides Body Fluid 25 mg/dL (0-150); Uric Acid Body Fluid 6 mg/dL
[2024-12-28 16:32] LABS: pH Body Fluid 6.5
[2024-12-28] MEDS: meropenem 1,000 mg SDV 1000 MG IVP (18:16)
[2024-12-28] MEDS: metoclopramide 10 mg Tablet 5 MG PO ×2 (18:17→22:33)
[2024-12-28] MEDS: sucralfate 1 gm/10 mL Oral Liq UDC PO (22:33)
--- NOTE | 2024-12-28 23:56 | PC.NURSE ---
patient in bed with eyes open, assessment sone at 2100, iv in her left ac space leaking iv fluid upon flushing. catheter intact upon removal. patient states she fell on the floor, skin assessment done, patient has bruising on her right back, and right and left buttock and also her right upper hip. patient alert and oriented at this time, has no complaints of pain. patient has a trace of pitting edema to bilateral lower extremeties. patient has complaints of swelling under both eyes, was said in report that patient was given plasma on 12/27/2024 and had an allergic reaction to it.
[2024-12-29 04:00] VITALS: BP 99/63; PULSE 76; RESP 16; TEMP 36.4; O2SAT 92
[2024-12-29 04:40] LABS: C.Diff PCR (Lab) NEGATIVE (Negative)
[2024-12-29 05:26] LABS: Basophils % 0.1 %; Hematocrit 26.5 % (36-47); Lymphocytes # 0.2 10^3/uL (0.8-4.8); Lymphocytes % 1.5 %; Mean Corpuscular HGB Conc 32.1 g/dL (30-55); Mean Corpuscular Hemoglobin 26.9 pg (27-33); Mean Corpuscular Volume 83.9 fl (85-98); Mean Platelet Volume 8.1 fL (7.4-10.4); Monocytes # 0.8 10^3/uL (0.2-0.9); Neutrophils # 14.68 10^3/uL (1.8-7.7); Neutrophils % 92.9 %; Nucleated Red Blood Cells % 0 %; Platelet Count 550 10^3/cmm (157-399); Red Blood Count 3.16 10^6/uL (3.85-5.65); Red Cell Distribution Width 14.4 % (12.1-15.1); White Blood Count 15.81 10^3/uL (3.29-11.43)
[2024-12-29 05:45] LABS: Alanine Aminotransferase 10 U/L (0-33); Albumin Level 2.2 g/dL (3.5-5.2); Alkaline Phosphatase 108 U/L (35-105); Anion Gap 14.8 (5-19); Aspartate Amino Transferase 17 U/L (0-32); Blood Urea Nitrogen 14 mg/dL (8-23); Carbon Dioxide 22 mmol/L (22-29); Chloride 100 mmol/L (98-107); Creatinine Clr Calc Pharmacy 55.0375; Globulin 2.9 g/dL (1.3-4.6); Glucose 108 mg/dL (65-115); Osmolality Calculated 277 mOsm/kg (285-295); Potassium 3.8 mmol/L (3.5-5.1); Sodium 133 mmol/L (136-145); Total Bilirubin 0.3 mg/dL (0.15-1.2); Total Protein 5.1 g/dL (6.6-8.7)
[2024-12-29 05:51] LABS: Chol HDL Ratio 2.85 mg/dL (0.0-4.40); Cholesterol 97 mg/dL (0-200); HDL Cholesterol 34 mg/dL (60-100); LDL Cholesterol Calculated 50 mg/dL (50-129); Magnesium 2.1 mg/dL (1.7-2.3); Triglycerides 66 mg/dL (0-150); VLDL Cholestrol Calculation 13 mg/dL (0-30)
[2024-12-29 06:05] LABS: Folate Level 12.6 ng/mL (4.8-37.3)
[2024-12-29] MEDS: sucralfate 1 gm/10 mL Oral Liq UDC PO ×4 (06:29→21:54)
[2024-12-29] MEDS: dilTIAZem 30 mg Tablet PO ×2 (06:29→21:53)
[2024-12-29] MEDS: metoclopramide 10 mg Tablet 5 MG PO ×4 (06:29→21:53)
[2024-12-29] MEDS: meropenem 1,000 mg SDV 1000 MG IVP ×3 (06:29→21:54)
[2024-12-29 07:12] VITALS: BP 99/59; PULSE 84; RESP 16; O2SAT 91
[2024-12-29] MEDS: atorvastatin 40 mg Tablet 20 MG PO (10:04)
[2024-12-29] MEDS: levothyroxine 50 mcg Tablet PO (10:05)
[2024-12-29] MEDS: citalopram 20 mg Tablet PO (10:05)
[2024-12-29] MEDS: pantoprazole 40 mg SDV IVP ×2 (10:05→21:53)
[2024-12-29] MEDS: acetaminophen 325 mg Tablet 650 MG PO (10:06)
[2024-12-29 11:00] VITALS: BP 96/56; PULSE 83; RESP 17; TEMP 36.7; O2SAT 90
--- NOTE | 2024-12-29 12:50 | P.PN_ITS ---
Subjective 2 Subjective: No acute events overnight. Patient lying comfortably in bed. States she is feeling fairly weak. Had to diarrheal bowel movements overnight. Denies any nausea, vomiting, headache. Blood pressure slightly soft today. Vitals/I&O/Wt Last Vital Signs Temp 98.0 F 12/29/24 11:00 Pulse 83 12/29/24 11:00 Resp 17 12/29/24 11:00 BP 96/56 12/29/24 11:00 Pulse Ox 90 12/29/24 11:00 O2 Del Method Room Air 12/29/24 11:00 O2 Flow Rate 3 12/28/24 04:00 12/28/24 12/29/24 12/29/24 22:59 06:59 14:59 Intake Total 240 / 2700 250 / 2950 Balance 240 / 2500 250 / 2750 Weight last 48 hrs Weight 68.492 kg Weight 69.4 kg Physical Exam 2 Narrative: General: Patient is awake and alert. Cough present. Head: Normocephalic. Atraumatic. EOM intact. Dry mucous membranes. Neck: No JVD. Cardiovascular: No gallops. No murmurs. Irregularly irregular rhythm. Lungs: Clear to auscultation, no use of accessory muscles, no crackles or wheezes. Cough present. Skin: No jaundice. No rashes. Abdomen: Normal bowel sounds, abdomen soft and nontender. Extremities: No cyanosis or clubbing. Musculoskeletal: No swollen or erythematous joints. Neurological: Moves all 4 extremities. No myoclonus. Data 12/29/24 04:53 12/29/24 04:53 Micro: Microbiology 12/28/24 15:20 Mycobacterial Smear - Preliminary Body Fluids - Peritoneal 12/28/24 15:20 Gram Stain - Final Peritoneal Fluid Anaerobic Culture - Preliminary Body Fluid Culture - Preliminary 12/27/24 16:23 Urine Culture - Final Urine,Voided 12/27/24 09:10 Blood Culture - Preliminary Blood NEGATIVE TO DATE 12/27/24 09:00 Blood Culture - Preliminary Blood NEGATIVE TO DATE A&P Assessment and plan (1) Atrial fibrillation: (2) Leukocytosis: (3) SBP (spontaneous bacterial peritonitis): (4) Aspiration pneumonia: (5) Peritoneal carcinomatosis: (6) Ascites: (7) Fall: (8) Hematoma: (9) Thrombocytosis: (10) Hypertension: (11) Hyponatremia: (12) Abnormal thyroid function test: (13) S/P abdominal paracentesis: Plan Newly diagnosed paroxysmal A-fib with a RVR Currently rate controlled. teletypesetter monitor. Given soft blood pressures change Cardizem to 30 mg every 8 hourly. Takes metoprolol 25 mg daily at home. Therapeutic Lovenox on hold for now due to left buttock hematoma leading to anemia post fall and patient requiring paracentesis. Hemoglobin continues to trend down. Hold off on full dose anticoagulation for now. Echocardiogram shows EF of 60% with grade 2 diastolic dysfunction. TSH found to be 4.75. Appreciate normal free T4 levels. Leukocytosis: Most likely in setting of aspiration pneumonia. Peritoneal fluid concerning for SBP with white count of more than 2300. Appreciate differentials. C. difficile negative. Cannot rule out elevated white count in peritoneal fluid because of possible malignancy. C. difficile negative. MRSA swab negative. Concern for aspiration pneumonia. Patient remains on room air. DC vancomycin. Continue with meropenem. Follow-up fluid cultures. Blood cultures so far negative. Dose of meropenem increased to 1 g 3 times daily on 12/28. Peritoneal carcinomatosis: Does have history of cervical cancer in the past. Post paracentesis. Will await cytology. Anemia: Hemoglobin trending down. 8.5. Patient having diarrhea. Cannot rule out lower GI bleed. Does have a history of radiation for cervical cancer. Check stool for occult blood. Protonix 40 mg twice daily. Carafate. If focal blood is positive will consult surgery for colonoscopy. Fall: Mechanical. PT/OT. Fall precaution. Appreciate CT abdomen pelvis with concern for hematoma in the hip. Hemoglobin so far stable. Continue to monitor hemoglobin daily. Target hemoglobin more than 7. Hypertension: Goal blood pressure less than 140/90 mmHg. Blood pressure stable. Continue to hold off on antihypertensive. Aspiration pneumonia: Antibiotic as above. Currently on dysphagia level 4 diet with extremely thickened liquid. Advance diet as per speech evaluation. CODE STATUS: Discussed in detail with patient and caregiver at bedside. Patient does not want any heroic measures in case of cardiac arrest. CODE STATUS changed to DNR/DNI. Patient does not think she would pursue any treatment for cancer if there is any concern for carcinomatosis. Did discuss for hospice if any concerns for cancer. Patient states she is agreeable to hospice if it comes out to be cancer. Dysphagia level 4 diet. SCD for DVT prophylaxis as patient was requiring paracentesis, left hip hematoma post fall. Protonix OPD prophylaxis Fatigue/malaise/weakness: PT/OT. Discussed discharge plan in detail with the patient. Discussed about possible discharge to SNF versus home with home health. Patient for now is agreeable with home with home meds. PDMP PDMP Reviewed: Not Reviewed Attestations 2 Medical Necessity Statement*: Requires further hospitalization for management of anemia with concerns for GI bleed in a patient with history of pelvic radiation for cervical cancer, new A- fib with RVR, SBP with concerns of peritoneal carcinomatosis Diagnoses Atrial fibrillation I48.91 Leukocytosis D72.829 SBP (spontaneous bacterial peritonitis) K65.2 Aspiration pneumonia J69.0 Peritoneal carcinomatosis C78.6 Ascites R18.8 Fall W19.XXXA Hematoma T14.8XXA Thrombocytosis D75.839 Hypertension I10 Hyponatremia E87.1 Abnormal thyroid function test R94.6 S/P abdominal paracentesis Z98.890
[2024-12-29 15:21] VITALS: BP 100/59; PULSE 92; RESP 16; TEMP 36.9; O2SAT 90
[2024-12-29 20:00] VITALS: BP 93/52; PULSE 80; RESP 16; TEMP 36.7; O2SAT 90
[2024-12-29 22:00] VITALS: PULSE 77
[2024-12-30] VITALS (7 sets, daily range): BP systolic 100–126; BP diastolic 52–74; PULSE 16–114; RESP 16–17; TEMP 36.5–36.9; O2SAT 90–92
[2024-12-30] MEDS: diphenoxylate/atropine Tablet 2 TAB PO ×2 (02:57→22:20)
[2024-12-30] MEDS: metoclopramide 10 mg Tablet 5 MG PO (05:31)
[2024-12-30] MEDS: meropenem 1,000 mg SDV 1000 MG IVP ×3 (05:31→22:19)
[2024-12-30] MEDS: sucralfate 1 gm/10 mL Oral Liq UDC PO ×4 (05:31→22:19)
[2024-12-30 05:48] LABS: Magnesium 2.2 mg/dL (1.7-2.3)
[2024-12-30 08:05] LABS: Basophils % 0.1 %; Hematocrit 32.5 % (36-47); Lymphocytes # 0.4 10^3/uL (0.8-4.8); Lymphocytes % 2.6 %; Mean Corpuscular HGB Conc 30.8 g/dL (30-55); Mean Corpuscular Hemoglobin 26.3 pg (27-33); Mean Corpuscular Volume 85.5 fl (85-98); Mean Platelet Volume 8.3 fL (7.4-10.4); Monocytes % 6.4 %; Neutrophils # 13.33 10^3/uL (1.8-7.7); Nucleated Red Blood Cells % 0 %; Platelet Count 734 10^3/cmm (157-399); Red Cell Distribution Width 14.9 % (12.1-15.1); White Blood Count 14.81 10^3/uL (3.29-11.43)
[2024-12-30 08:25] LABS: Alanine Aminotransferase 13 U/L (0-33); Albumin Level 2.8 g/dL (3.5-5.2); Alkaline Phosphatase 129 U/L (35-105); Anion Gap 20.6 (5-19); Aspartate Amino Transferase 23 U/L (0-32); Blood Urea Nitrogen 15 mg/dL (8-23); Calcium 8.5 mg/dL (8.5-10.5); Carbon Dioxide 20 mmol/L (22-29); Chloride 97 mmol/L (98-107); Creatinine Clr Calc Pharmacy 54.8687; Globulin 3.3 g/dL (1.3-4.6); Glucose 87 mg/dL (65-115); Osmolality Calculated 278 mOsm/kg (285-295); Phosphorus 2.3 mg/dL (2.5-4.5); Potassium 3.6 mmol/L (3.5-5.1); Sodium 134 mmol/L (136-145); Total Bilirubin 0.4 mg/dL (0.15-1.2); Total Protein 6.1 g/dL (6.6-8.7)
--- NOTE | 2024-12-30 08:34 | ECG_ITS ---
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: : 1945 Requested By: Maximiliano Carvajal Order Number: [id number] Reading MD: UGO HANEY Measurements Intervals [place] Rate: 92 P: 100 HI: 184 QRS: -12 QRSD: 140 T: 134 QT: 379 QTc: 470 Interpretive Statements SINUS RHYTHM LEFT BUNDLE BRANCH BLOCK [120+ ms QRS DURATION, 80+ ms Q/S IN V1/V2, 85+ ms R IN I/aVL/V5/V6] Compared to ECG 12/24/2024 11:25:46 Left bundle-branch block now present T-wave abnormality no longer present Electronically Signed On 12-31-2024 23:40:14 CDT by UGO HANEY [email or web address] [id number]
[2024-12-30] MEDS: levothyroxine 50 mcg Tablet PO (09:19)
[2024-12-30] MEDS: citalopram 20 mg Tablet PO (09:19)
[2024-12-30] MEDS: dilTIAZem 30 mg Tablet PO ×3 (09:19→22:20)
[2024-12-30] MEDS: pantoprazole 40 mg SDV IVP ×2 (09:19→22:19)
[2024-12-30] MEDS: atorvastatin 40 mg Tablet 20 MG PO (09:19)
[2024-12-30] MEDS: metoprolol tartrate 25 mg Tablet 12.5 MG PO ×2 (09:20→22:20)
[2024-12-30] MEDS: sodium chloride 0.9% 1,000 ML 75 ML IV ×2 (09:23→22:21)
--- NOTE | 2024-12-30 12:24 | P.PN_ITS ---
Subjective 2 Subjective: Overnight patient continued to have 2-3 episodes of diarrhea. Patient states she had a restless night because of diarrhea. Did have 4 beats of nonsustained V. tach in which patient was asymptomatic. The morning patient is sitting at the edge of the bed. Denies any nausea, vomiting, headache. Vitals/I&O/Wt Last Vital Signs Temp 97.9 F 12/30/24 11:11 Pulse 80 12/30/24 11:11 Resp 16 12/30/24 11:11 BP 126/71 12/30/24 11:11 Pulse Ox 90 12/30/24 11:11 O2 Del Method Room Air 12/30/24 11:11 O2 Flow Rate 3 12/28/24 04:00 12/29/24 12/30/24 12/30/24 22:59 06:59 14:59 Intake Total 285 / 405 120 / 120 Balance 285 / 405 120 / 120 Weight last 48 hrs Weight 68.946 kg Weight 68.492 kg Physical Exam 2 Narrative: General: Patient is awake and alert. Cough present. Head: Normocephalic. Atraumatic. EOM intact. Dry mucous membranes. Neck: No JVD. Cardiovascular: No gallops. No murmurs. Irregularly irregular rhythm. Lungs: Clear to auscultation, no use of accessory muscles, no crackles or wheezes. Cough present. Skin: No jaundice. No rashes. Abdomen: Normal bowel sounds, abdomen soft and nontender. Extremities: No cyanosis or clubbing. Musculoskeletal: No swollen or erythematous joints. Neurological: Moves all 4 extremities. No myoclonus. Data 12/30/24 04:47 12/30/24 04:47 Micro: Microbiology 12/28/24 15:20 Gram Stain - Final Peritoneal Fluid Anaerobic Culture - Preliminary Body Fluid Culture - Preliminary 12/28/24 15:20 Mycobacterial Smear - Preliminary Body Fluids - Peritoneal 12/27/24 16:23 Urine Culture - Final Urine,Voided A&P Assessment and plan (1) Atrial fibrillation: (2) Leukocytosis: (3) SBP (spontaneous bacterial peritonitis): (4) Aspiration pneumonia: (5) Peritoneal carcinomatosis: (6) Ascites: (7) Fall: (8) Hematoma: (9) Thrombocytosis: (10) Hypertension: (11) Hyponatremia: (12) Abnormal thyroid function test: (13) S/P abdominal paracentesis: Plan Newly diagnosed paroxysmal A-fib with a RVR 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 Given soft blood pressures change Cardizem to 30 mg every 8 hourly. Takes metoprolol 25 mg daily at home. Therapeutic Lovenox on hold for now due to left buttock hematoma leading to anemia post fall and patient requiring paracentesis. Hemoglobin continues to trend down. Hold off on full dose anticoagulation for now. Echocardiogram shows EF of 60% with grade 2 diastolic dysfunction. TSH found to be 4.75. Appreciate normal free T4 levels. Leukocytosis: Most likely in setting of aspiration pneumonia. Peritoneal fluid concerning for SBP with white count of more than 2300. Appreciate differentials. C. difficile negative. Cannot rule out elevated white count in peritoneal fluid because of possible malignancy. C. difficile negative. MRSA swab negative. Concern for aspiration pneumonia. Patient remains on room air. DC vancomycin. Continue with meropenem. Follow-up fluid cultures. Blood cultures so far negative. Dose of meropenem increased to 1 g 3 times daily on 12/28. Peritoneal carcinomatosis: Does have history of cervical cancer in the past. Post paracentesis. Will await cytology. Anemia: Hemoglobin trending down. 8.5. Patient having diarrhea. Cannot rule out lower GI bleed. Does have a history of radiation for cervical cancer. Check stool for occult blood. Protonix 40 mg twice daily. Carafate. If focal blood is positive will consult surgery for colonoscopy. Fall: Mechanical. PT/OT. Fall precaution. Appreciate CT abdomen pelvis with concern for hematoma in the hip. Hemoglobin so far stable. Continue to monitor hemoglobin daily. Target hemoglobin more than 7. Hypertension: Goal blood pressure less than 140/90 mmHg. Blood pressure stable. Continue to hold off on antihypertensive. Aspiration pneumonia: Antibiotic as above. Currently on dysphagia level 4 diet with extremely thickened liquid. Advance diet as per speech evaluation. CODE STATUS: Discussed in detail with patient and caregiver at bedside. Patient does not want any heroic measures in case of cardiac arrest. CODE STATUS changed to DNR/DNI. Patient does not think she would pursue any treatment for cancer if there is any concern for carcinomatosis. Did discuss for hospice if any concerns for cancer. Patient states she is agreeable to hospice if it comes out to be cancer. Dysphagia level 4 diet. SCD for DVT prophylaxis as patient was requiring paracentesis, left hip hematoma post fall. Protonix OPD prophylaxis Fatigue/malaise/weakness: PT/OT. Discussed discharge plan in detail with the patient. Discussed about possible discharge to SNF versus home with home health. Patient for now is agreeable with home with home meds. Plan for the day: Did have 4 beat runs of NSVT overnight. Asymptomatic. Electrolytes stable. Magnesium around 2, potassium around 4 target. Continue with Cardizem 30 mg 3 times daily. Add mild metoprolol 12.5 mg twice daily. Take 25 mg daily at home. Uptitrate if blood pressure stable. Continues to have multiple soft bowel movements. C. difficile negative. Stop stool softeners. If continues to have multiple diarrheal bowel movement will plan for Imodium. Patient had constipation on admission. Follow-up peritoneal fluid cultures. So far negative. Fluid studies consistent with possible SBP versus high white count due to carcinomatosis. Fluid cultures were taken after being on IV antibiotics for 3 days. So could be falsely negative as well. To be on the safer side will plan to finish the course of IV antibiotics for possible SBP. Continue with meropenem 1 g 3 times daily for now. Will plan to transition to ertapenem 1 g IV daily to finish a 7-day course with last dose on 01/05. Out of bed to chair. Remove bedside commode. Physical therapy. Follow-up fluid cytology as an outpatient. Hemoglobin so far stable. Continue with Protonix twice daily, Carafate AC and at bedtime. PDMP PDMP Reviewed: Not Reviewed Attestations 2 Medical Necessity Statement*: Requires further hospitalization for management of possible SBP with concerns for peritoneal carcinomatosis while outpatient IV antibiotics, safe discharge planning is sought, nonsustained V. tach overnight in a patient with history of A-fib, anemia while GI bleed is ruled out in a patient with history of pelvic radiation for cervical cancer. Diagnoses Atrial fibrillation I48.91 Leukocytosis D72.829 SBP (spontaneous bacterial peritonitis) K65.2 Aspiration pneumonia J69.0 Peritoneal carcinomatosis C78.6 Ascites R18.8 Fall W19.XXXA Hematoma T14.8XXA Thrombocytosis D75.839 Hypertension I10 Hyponatremia E87.1 Abnormal thyroid function test R94.6 S/P abdominal paracentesis Z98.890
[2024-12-30] MEDS: acetaminophen 325 mg Tablet 650 MG PO (22:25)
[2024-12-31] VITALS: BP 118/72; PULSE 95; RESP 16; TEMP 36.4; O2SAT 94
[2024-12-31 03:27] VITALS: BP 99/60; PULSE 81; RESP 17; TEMP 36.7; O2SAT 90
--- NOTE | 2024-12-31 04:09 | PC.NURSE ---
patient up to bathroom with walker. getting more steady on her feet the more she gets up to walk. tolerated well
[2024-12-31 05:14] LABS: Basophils % 0.1 %; Eosinophils # 0.1 10^3/uL (0.0-0.8); Eosinophils % 0.7 %; Hematocrit 28.8 % (36-47); Lymphocytes # 0.5 10^3/uL (0.8-4.8); Lymphocytes % 4.9 %; Mean Corpuscular HGB Conc 30.9 g/dL (30-55); Mean Corpuscular Hemoglobin 26.5 pg (27-33); Mean Corpuscular Volume 85.7 fl (85-98); Mean Platelet Volume 8.2 fL (7.4-10.4); Monocytes # 0.9 10^3/uL (0.2-0.9); Neutrophils # 8.53 10^3/uL (1.8-7.7); Neutrophils % 84.4 %; Nucleated Red Blood Cells % 0 %; Platelet Count 591 10^3/cmm (157-399); Red Blood Count 3.36 10^6/uL (3.85-5.65)
[2024-12-31] MEDS: meropenem 1,000 mg SDV 1000 MG IVP (05:33)
[2024-12-31] MEDS: sucralfate 1 gm/10 mL Oral Liq UDC PO (05:34)
[2024-12-31 05:37] LABS: Alanine Aminotransferase 10 U/L (0-33); Albumin Level 2.2 g/dL (3.5-5.2); Alkaline Phosphatase 119 U/L (35-105); Anion Gap 12.7 (5-19); Aspartate Amino Transferase 20 U/L (0-32); Blood Urea Nitrogen 14 mg/dL (8-23); Calcium 7.8 mg/dL (8.5-10.5); Carbon Dioxide 23 mmol/L (22-29); Chloride 100 mmol/L (98-107); Creatinine Clr Calc Pharmacy 54.8687; Globulin 2.7 g/dL (1.3-4.6); Glucose 88 mg/dL (65-115); Osmolality Calculated 274 mOsm/kg (285-295); Potassium 3.7 mmol/L (3.5-5.1); Sodium 132 mmol/L (136-145); Total Bilirubin 0.5 mg/dL (0.15-1.2); Total Protein 4.9 g/dL (6.6-8.7)
[2024-12-31 05:40] LABS: Magnesium 2.1 mg/dL (1.7-2.3)
[2024-12-31 08:08] VITALS: BP 129/75; PULSE 103; RESP 16; TEMP 36.6; O2SAT 91
--- NOTE | 2024-12-31 08:12 | P.DS_ITS ---
Discharge Providers Date of Admission: 12/25/24 07:21 Date of Discharge: December 31, 2024 Attending Provider at Admission: Garrett Berman MD Attending Provider at Discharge: Maximiliano Carvajal MD Primary Care Provider: Anayeli Reaves MD Diagnoses at Discharge Discharge Diagnosis (1) Atrial fibrillation: Status: Acute (2) Leukocytosis: Status: Acute (3) SBP (spontaneous bacterial peritonitis): Status: Acute (4) Aspiration pneumonia: Status: Acute (5) Peritoneal carcinomatosis: Status: Acute (6) Ascites: Status: Acute (7) Fall: Status: Acute (8) Hematoma: Status: Acute (9) Thrombocytosis: Status: Acute (10) Hypertension: Status: Acute (11) Hyponatremia: Status: Acute (12) Abnormal thyroid function test: Status: Acute (13) S/P abdominal paracentesis: Status: Acute Reason for Visit Reason for Visit: WEAKNESS Brief History: As per HPI Klarissa Willson is a 79 year old female with a past medical history significant for hypertension, hyperlipidemia, cervical cancer, and multiple other comorbidities who presents to the emergency department with persistent cough x 10 days. She describes her cough is productive. Patient endorses associated severe weakness, nausea, vomiting, and generalized malaise. She endorses post-tussive emesis. She states she can only eat a couple bites of food at a time before symptoms worsen. She attributes much of her weakness to inability to hold down food. She reports she completed 1 week of antibiotics. She was recently diagnosed with bronchitis and treated with steroids and doxycycline. Reports associated chills. Denies chest pain or fevers. On the emergency department, she was found to have atrial fibrillation with rapid ventricular rate. Started on Cardizem. She denies prior history of known A-fib. Denies family history of atrial fibrillation. Hospital Course Hospital Course Patient was admitted to the hospital further evaluation and management of A-fib with RVR, concern for bronchitis along with abdominal pain. CT abdomen pelvis was done on admission which showed concerns for peritoneal carcinomatosis along with ascites. At first she was started on Cardizem drip which were later transitioned to oral Cardizem. She was continued on broad-spectrum antibiotics with concern for aspiration pneumonia. During hospitalization she had a mechanical fall after which she developed left buttock hematoma while being on full dose anticoagulation. Her hemoglobin remained stable. She underwent para centesis on 12/28. Fluid studies were mildly concerning for possible SBP for which her antibiotics were continued. For now her cultures including blood culture, urine culture, fluid cultures have remained negative. She did continue to have leukocytosis. Elevated white count and peritoneal fluid could be in setting of peritoneal carcinomatosis but given the acute illness and occasional abdominal pain decision was made to continue with IV or ertapenem to finish a 7- day course while cultures are monitored. Safe discharge plan were discussed in detail with the patient and she requested to be transition to SNF to get stronger. She has been discharged in hemodynamically stable condition to SNF with advised to continue and finish IV antibiotic course for last dose on 01/05. She will follow-up with primary care provider as an outpatient for further evaluation and discussion of results of peritoneal fluid for cytology. Given concerns for A-fib she is being discharged on full dose anticoagulation with Eliquis 5 mg twice daily. She is to have a repeat CBC check in 1 week. Physical Exam Narrative: General: Patient is awake and alert. Cough present. Head: Normocephalic. Atraumatic. EOM intact. Dry mucous membranes. Neck: No JVD. Cardiovascular: No gallops. No murmurs. Irregularly irregular rhythm. Lungs: Clear to auscultation, no use of accessory muscles, no crackles or wheezes. Cough present. Skin: No jaundice. No rashes. Abdomen: Normal bowel sounds, abdomen soft and nontender. Extremities: No cyanosis or clubbing. Musculoskeletal: No swollen or erythematous joints. Neurological: Moves all 4 extremities. No myoclonus. Discharge Data Studies Completed and Pending Completed Studies During Hospitalization Category Date Time Status CT Angio Chest + Abdomen Pelvis w/ contrast; [id number] + Cat Scan 12/24/24 10:[address] abdomen pelvis w con* [id number] Stat Cat Scan 12/27/24 08:33 Completed CXRP [XR chest 1V portable [id number]] Stat Exams 12/24/24 05:00 Completed XR pelvis 1-2V* [id number] Routine Exams 12/24/24 20:37 Completed CV. echo complete* [id number] Routine Ultrasound 12/24/24 06:02 Completed US abdomen lmt fluid [id number] Routine Ultrasound 12/25/24 13:58 Com[place] paracentesis abd w [id number] Routine Ultrasound 12/28/24 08:31 Completed Pending at discharge Category Date Time Status Amylase, Pleural Fluid Routine Lab 12/25/24 13:59 Received Anaerobic Culture Routine Lab 12/25/24 13:59 Results Blood Culture Stat Lab 12/27/24 09:10 Results Body Fluid Culture & GS Routine Lab 12/25/24 13:59 Results Complete Blood Count w/Auto AM LABS Lab 01/01/25 04:00 Ordered Complete Blood Count w/Auto AM LABS Lab 01/02/25 04:00 Ordered Comprehensive Metabolic Panel AM LABS Lab 01/01/25 04:00 Ordered Comprehensive Metabolic Panel AM LABS Lab 01/02/25 04:00 Ordered MAG [Magnesium] AM LABS Lab 01/01/25 04:00 Ordered MAG [Magnesium] AM LABS Lab 01/02/25 04:00 Ordered Mycobacteria, Culture w/Fluor Routine Lab 12/25/24 13:59 Results Occult Blood Stool [Immunochemical Fecal OCB] Routine Lab 12/29/24 08:36 Uncollected Sputum Culture and Gram Stain Routine Lab 12/24/24 06:10 Uncollected Cytology [PTH] Routine Pth 12/25/24 13:59 Received Radiology Impressions Chest X-Ray 12/24/24 05:00 IMPRESSION: No acute findings. Chest/Abdomen/Pelvis CT 12/24/24 10:38 IMPRESSION: 1. No evidence of pulmonary embolus. 2. Tiny bilateral pleural effusions. 3. Large esophageal hiatal hernia with partial intrathoracic stomach. 4. Diffuse nodular induration in the ventral abdominal mesentery suspicious for peritoneal carcinomatosis. Recommend correlation with history of malignancy. 5. Small volume perihepatic and perisplenic ascites with peripheral enhancement extending to the paracolic gutters. Moderate amount of fluid in the pelvis with peripheral enhancement. Recommend correlation for peritonitis versus pseudomyxoma peritonei. Correlation with history of [employer] neoplasm. No visualized uterus. Pelvis X-Ray 12/24/24 20:37 IMPRESSION: No acute findings. Abdomen Ultrasound 12/25/24 13:58 IMPRESSION: Very small amount of peritoneal ascites. Patient has refused paracentesis at this time. Abdomen/Pelvis CT 12/27/24 08:33 IMPRESSION: 1. New cluster of tiny hyperdense foci in inferior right gluteal musculature indicates bleeding. Tiny amounts of new blood in the adjacent fat. 2. Unchanged large amount of simple free intraperitoneal fluid with unchanged findings of possible carcinomatosis and peritonitis. 3. Increased distension of gallbladder. Increased mild bile duct dilatation with common bile duct measuring 8 mm in diameter. Uncertain etiology. Consider MRCP and/or ERCP for this. 4. No acute fractures. 5. Additional details as above. Paracentesis Ultrasound 12/28/24 08:31 IMPRESSION: 1. Uncomplicated ultrasound-guided paracentesis. 2. Removal of 1000 cc 3. Fluid sent for requested diagnostic tests. Microbiology 12/28/24 15:20 Peritoneal Fluid Gram Stain - Final 12/28/24 15:20 Peritoneal Fluid Anaerobic Culture - Preliminary 12/28/24 15:20 Peritoneal Fluid Body Fluid Culture - Preliminary 12/28/24 15:20 Body Fluids - Peritoneal Mycobacterial Smear - Preliminary 12/27/24 16:23 Urine,Voided Urine Culture - Final 12/27/24 09:10 Blood Blood Culture - Preliminary NEGATIVE TO DATE 12/27/24 09:00 Blood Blood Culture - Preliminary NEGATIVE TO DATE Echocardiogram: CONCLUSIONS Normal left ventricular size, systolic function and wall thickness, with no regional wall motion abnormalities. Left ventricular ejection fraction is estimated at 60 %. Grade II/IV diastolic dysfunction, moderately elevated filling pressures. There is no pericardial effusion. No significant valve abnormalities. Right atrial pressure is around 5 mm of mercury. Erinn Hawk MD (Electronically Signed) Final Date: 25 Dec 2024 17:20 Laboratory Results WBC 10.10 10^3/uL (3.29-11.43) 12/31/24 04:40 RBC 3.36 10^6/uL (3.85-5.65) L 12/31/24 04:40 Hgb 8.90 g/dL (11.27-16.99) L 12/31/24 04:40 Hct 28.8 % (36-47) L 12/31/24 04:40 MCV 85.7 fl (85-98) 12/31/24 04:40 MCH 26.5 pg (27-33) L 12/31/24 04:40 MCHC 30.9 g/dL (30-55) 12/31/24 04:40 RDW 15.0 % (12.1-15.1) 12/31/24 04:40 Plt Count 591 10^3/cmm (157-399) H 12/31/24 04:40 MPV 8.2 fL (7.4-10.4) 12/31/24 04:40 Neut % (Auto) 84.4 % 12/31/24 04:40 Lymph % (Auto) 4.9 % 12/31/24 04:40 Tyrrell % (Auto) 9.0 % 12/31/24 04:40 Eos % (Auto) 0.7 % 12/31/24 04:40 Baso % (Auto) 0.1 % 12/31/24 04:40 Neut # (Auto) 8.53 10^3/uL (1.8-7.7) H 12/31/24 04:40 Lymph # (Auto) 0.5 10^3/uL (0.8-4.8) L 12/31/24 04:40 Tyrrell # (Auto) 0.9 10^3/uL (0.2-0.9) 12/31/24 04:40 Eos # (Auto) 0.1 10^3/uL (0.0-0.8) 12/31/24 04:40 Baso # (Auto) 0.0 10^3/uL (0.0-0.1) 12/31/24 04:40 Nucleated RBC % (auto) 0 % 12/31/24 04:40 Nucleated RBCs # 0.0 /100WBC 12/31/24 04:40 Differential Comment Yes 12/28/24 15:20 PT 14.20 SECONDS (12.1-14.9) 12/28/24 06:23 INR 1.02 (0.8-1.2) 12/28/24 06:23 D-Dimer 5.85 ug/mLFEU (0-0.59) H 12/24/24 05:02 Sodium 132 mmol/L (136-145) L 12/31/24 04:40 Potassium 3.7 mmol/L (3.5-5.1) 12/31/24 04:40 Chloride 100 mmol/L (98-107) 12/31/24 04:40 Carbon Dioxide 23 mmol/L (22-29) 12/31/24 04:40 Anion Gap 12.7 (5-19) 12/31/24 04:40 BUN 14 mg/dL (8-23) 12/31/24 04:40 Creatinine 0.6 mg/dL (0.5-0.9) 12/31/24 04:40 GFR Calculation Not Reportable 12/31/24 04:40 Glucose 88 mg/dL (65-115) 12/31/24 04:40 Estimat Average Glucose 105 12/28/24 06:23 Hemoglobin A1c 5.3 % (4.0-6.0) 12/28/24 06:23 Calculated Osmolality 274 mOsm/kg (285-295) L 12/31/24 04:40 Lactic Acid 1.0 mmol/L (0.5-2.2) 12/24/24 05:02 Calcium 7.8 mg/dL (8.5-10.5) L 12/31/24 04:40 Phosphorus 2.3 mg/dL (2.5-4.5) L 12/30/24 04:47 Magnesium 2.1 mg/dL (1.7-2.3) 12/31/24 04:40 Iron 14 ug/dL (37-145) L 12/28/24 06:23 TIBC 186 mcg/dl 12/28/24 06:23 % Saturation 7.5 % (20-50) L 12/28/24 06:23 Unsat Iron Binding 172 ug/dL (112-347) 12/28/24 06:23 Total Bilirubin 0.5 mg/dL (0.15-1.2) 12/31/24 04:40 AST 20 U/L (0-32) 12/31/24 04:40 ALT 10 U/L (0-33) 12/31/24 04:40 Alkaline Phosphatase 119 U/L (35-105) H 12/31/24 04:40 Troponin T Baseline 11 ng/L (0-10) H 12/24/24 05:02 Troponin T 120 Minute 12.65 ng/L (0-10) H 12/24/24 06:52 Delta Troponin T 1.65 ABS# (0-10) 12/24/24 06:52 Troponin T Hi Sens 6Hr 14.47 ng/L (0-10) H 12/24/24 10:59 Troponin T Hi Sens 6Hr Delta 3.47 ng/L (0-12) 12/24/24 10:59 C-Reactive Protein 292.8 mg/L (0.0-4.9) H 12/28/24 06:23 NT-Pro-B Natriuret Pep 1148 pg/mL (0-450) H 12/28/24 06:23 Total Protein 4.9 g/dL (6.6-8.7) L 12/31/24 04:40 Albumin 2.2 g/dL (3.5-5.2) L 12/31/24 04:40 Globulin 2.7 g/dL (1.3-4.6) 12/31/24 04:40 Triglycerides 66 mg/dL (0-150) 12/29/24 04:53 Cholesterol 97 mg/dL (0-200) 12/29/24 04:53 LDL Cholesterol, Calc 50 mg/dL (50-129) 12/29/24 04:53 Total VLDL Cholesterol 13 mg/dL (0-30) 12/29/24 04:53 HDL Cholesterol 34 mg/dL (60-100) L 12/29/24 04:53 Cholesterol/HDL Ratio 2.85 mg/dL (0.0-4.40) 12/29/24 04:53 CA 125 Antigen 54.6 U/mL (0-35) H 12/26/24 12:44 Vitamin B12 > 2000 pg/mL (232-1245) H 12/28/24 06:23 Folate 12.6 ng/mL (4.8-37.3) 12/29/24 04:53 Procalcitonin 0.28 ng/mL (0-0.5) 12/28/24 06:23 TSH 4.75 uIU/mL (0.27-4.20) H 12/24/24 05:02 Free T4 1.68 ng/dL (0.82-1.77) 12/24/24 05:02 Fluid Color Red 12/28/24 15:20 Fluid Appearance Turbid 12/28/24 15:20 Fluid Specific Grav 1.025 12/28/24 15:20 Fluid pH 6.5 12/28/24 15:20 Fluid WBC 2393 /uL 12/28/24 15:20 Fluid RBC 33.000 10^3/uL 12/28/24 15:20 Fld Polynuclear WBCs # 0.997 12/28/24 15:20 Fld Polynuclear WBCs % 41.600 % 12/28/24 15:20 Fl Mononucl WBCs #(Auto) 1.396 12/28/24 15:20 Fl Mononuclear % Auto 58.400 % 12/28/24 15:20 Fld Crystal Laterality Para fluid 12/28/24 15:20 Fluid Glucose 79.0 mg/dL 12/28/24 15:20 Fluid Total Protein 3.5 g/dL 12/28/24 15:20 Fluid Albumin 2.0 g/dL 12/28/24 15:20 Fluid LDH 605 U/L 12/28/24 15:20 Fluid Alk Phosphatase 52 IU/L 12/28/24 15:20 Fluid Cholesterol 72 mg/dL (0-200) 12/28/24 15:20 Fluid Triglycerides 25 mg/dL (0-150) 12/28/24 15:20 Fluid Uric Acid 6 mg/dL 12/28/24 15:20 Nasal MRSA (PCR) Not detected (Not Detecte) 12/28/24 14:26 Adenovirus (PCR) Not detected (NOT DETECT) 12/24/24 10:00 C. pneumoniae DNA (PCR) Not detected (NOT DETECT) 12/24/24 10:00 C. difficile (PCR) Negative (Negative) 12/29/24 03:08 Coronavirus 229E (PCR) Not detected (NOT DETECT) 12/24/24 10:00 Human Metapneumovir PCR Not detected (NOT DETECT) 12/24/24 10:00 Influenza A (H1) PCR Not detected (NOT DETECT) 12/24/24 10:00 Influenza A (PCR) Negative (Negative) 12/24/24 05:18 Influ A (H1/09) PCR Not detected (NOT DETECT) 12/24/24 10:00 Influenza A (H3) PCR Not detected (NOT DETECT) 12/24/24 10:00 Influenza Type A (PCR) Not detected (NOT DETECT) 12/24/24 10:00 Influenza Type B (PCR) Not detected (NOT DETECT) 12/24/24 10:00 M. pneumoniae (PCR) Not detected (NOT DETECT) 12/24/24 10:00 Parainfluenza 1 (PCR) Not detected (NOT DETECT) 12/24/24 10:00 Parainfluenza 2 (PCR) Not detected (NOT DETECT) 12/24/24 10:00 Parainfluenza 3 (PCR) Not detected (NOT DETECT) 12/24/24 10:00 Parainfluenza 4 (PCR) Not detected (NOT DETECT) 12/24/24 10:00 RSV (PCR) Negative (Negative) 12/24/24 05:18 RSV Type A (PCR) Not detected (NOT DETECT) 12/24/24 10:00 RSV Type B (PCR) Not detected (NOT DETECT) 12/24/24 10:00 Entero/Rhino (PCR) Not detected (NOT DETECT) 12/24/24 10:00 SARS-CoV-2 (PCR) Not detected (NOT DETECT) 12/24/24 10:00 Blood Type O Positive 12/27/24 12:00 Rho(D) Type Rh positive 12/27/24 12:00 Vitals Last Vital Signs Temp 97.9 F 12/31/24 08:08 Pulse 103 H 12/31/24 08:08 Resp 16 12/31/24 08:08 BP 129/75 12/31/24 08:08 Pulse Ox 91 12/31/24 08:08 O2 Del Method Room Air 12/31/24 08:08 O2 Flow Rate 3 12/28/24 04:00 Discharge Plan Discharge Patient Disposition: Home Condition: Stable Prescriptions: New diltiazem HCl 30 mg Tablet 30 mg PO BID Qty: 60 0RF pantoprazole [Protonix] 40 mg tablet,delayed release (DR/EC) 40 mg PO QAM Qty: 60 0RF Rx Instructions: Twice daily for next 2 weeks followed by once daily Eliquis 5 mg tablet 5 mg PO BID Qty: 60 0RF Continued aspirin 81 mg tablet,delayed release (DR/EC) 81 mg PO DAILY lovastatin 20 mg tablet 20 mg PO DAILY levothyroxine 50 mcg tablet 50 mcg PO DAILY citalopram 20 mg tablet 20 mg PO DAILY Changed metoprolol tartrate 25 mg tablet 25 mg PO BIDWM Qty: 60 0RF Discontinued amlodipine 10 mg tablet 10 mg PO DAILY lisinopril 20 mg tablet 20 mg PO DAILY Discharge Orders: Discharge Order (Routine); Ordered 12/31/24 Ordered By: Maximiliano Carvajal Referrals: Anayeli Reaves MD [Primary Care Provider, Internal Medicine] Lindsey Ortez NP [Nurse Practitioner, Cardiology] - 01/12/25 2:00 pm Discharge Diet: As Directed Discharge Activity: Resume usual activity and Increase activity as tolerated Patient Instructions: Diltiazem (By mouth), Pantoprazole (By mouth), Ertapenem (By injection), Peritonitis (GEN), Opioid Safety Activity Restrictions/Additional Instructions: Dysphagia level 6 diet Follow-up with the primary care provider within next 1 week for further discussion about cytology results from peritoneal fluid. Repeat CBC in 1 week. Discharge Attestations Time Spent in Discharge Care*: greater than 30 min Specific Discharge Activities: educating patient, educating and/or supporting family/caregiver, discussing with pcp/other providers, discussing with case preparer and liner/social workers/dc planners, documenting/other paperwork and evaluating patient/reviewing data Status at Discharge: Cognitive status at discharge: cognitively intact , Behavioral status at discharge: cooperative , Functional status at discharge: uses cane/walker , Overall status at discharge: patient is back to baseline Quality Metrics Clinical Quality Measures [ No reported AMI, CVA or VTE this stay] Coding Level of Care Code 63520 Total time (in minutes) for Discharge: 60 Diagnoses Atrial fibrillation I48.91 Leukocytosis D72.829 SBP (spontaneous bacterial peritonitis) K65.2 Aspiration pneumonia J69.0 Peritoneal carcinomatosis C78.6 Ascites R18.8 Fall W19.XXXA Hematoma T14.8XXA Thrombocytosis D75.839 Hypertension I10 Hyponatremia E87.1 Abnormal thyroid function test R94.6 S/P abdominal paracentesis Z98.890
[2024-12-31] MEDS: metoprolol tartrate 25 mg Tablet 12.5 MG PO (08:14)
[2024-12-31] MEDS: dilTIAZem 30 mg Tablet PO (08:15)
[2024-12-31] MEDS: citalopram 20 mg Tablet PO (08:15)
[2024-12-31] MEDS: atorvastatin 40 mg Tablet 20 MG PO (08:15)
[2024-12-31] MEDS: levothyroxine 50 mcg Tablet PO (08:15)
[2024-12-31] MEDS: pantoprazole 40 mg SDV IVP (08:15)
--- NOTE | 2024-12-31 08:21 | PC.NURSE ---
Discharge orders: Discharge orders just placed. At this time staff has not attended [facility] for discharge plan.
[2024-12-31] MEDS: ertapenem 1,000 mg SDV 1000 MG IVP (09:05)
[2024-12-31] MEDS: acetaminophen 325 mg Tablet 650 MG PO (09:27)
[2024-12-31 09:40] LABS: Amylase, Pleural Fluid 20 U/L
--- NOTE | 2024-12-31 09:58 | PC.NURSE ---
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
--- NOTE | 2024-12-31 11:00 | PC.NURSE ---
Report called to Danial Peña
[2024-12-31 11:01] VITALS: BP 129/75; PULSE 103; RESP 16; TEMP 36.6; O2SAT 91
[2024-12-31 11:47] VITALS: BP 122/70; PULSE 83; RESP 18; TEMP 37; O2SAT 90
== END 2024-12-31 13:40 | disposition home or self-care (01) | DRG 308 ==
LOC: ER 05:47 → CSU 07:25 → MEDSURG 12-25 16:55
PROVIDERS: Family Medicine; Admitting Provider Internal Medicine; Emergency Provider Emergency Medicine; PCP Internal Medicine; Visit Provider Student in an Organized Health Care Education/Training Program
DX: I48.0 Paroxysmal atrial fibrillation (principal); J69.0 Pneumonitis due to inhalation of food and vomit; K65.2 Spontaneous bacterial peritonitis; E87.1 Hypo-osmolality and hyponatremia; C80.0 Disseminated malignant neoplasm, unspecified; R18.8 Other ascites; I10 Essential (primary) hypertension; I47.20 Ventricular tachycardia, unspecified; E78.5 Hyperlipidemia, unspecified; Z79.899 Other long term (current) drug therapy; Z79.82 Long term (current) use of aspirin; Z88.0 Allergy status to penicillin; Z88.2 Allergy status to sulfonamides; J40 Bronchitis, not specified as acute or chronic; D75.839 Thrombocytosis, unspecified; W19.XXXA Unspecified fall, initial encounter; Z66 Do not resuscitate; S30.0XXA Contusion of lower back and pelvis, initial encounter
CPT/HCPCS: 36415; 36430; 49083; 71045; 71275; 72170; 74177; 76705; 80053; 80061; 80503; 82042; 82150; 82465; 82607; 82746; 82945; 83036; 83540; 83550; 83605; 83615; 83735; 83880; 83986; 84075; 84100; 84145; 84157; 84315; 84439; 84443; 84478; 84484; 84560; 85014; 85018; 85025; 85378; 85610; 86140; 86304; 86900; 86927; 87015; 87040; 87070; 87075; 87086; 87116; 87205; 87206; 87486; 87493; 87581; 87633; 87637; 87801; 88112; 88305; 89050; 92523; 92526; 92610; 93005; 93306; 96365; 96372; 96375; 97116; 97161; 97530; 99285; G0378; J0456; J0696; J1100; J1335; J1650; J1885; J1938; J2060; J2185; J2270; J2405; J2470; J3370; J3490; J7030; J7050; J8597; J9999; P9017